=== PATIENT | female | born 1975 | race Caucasian/White ===

== ENCOUNTER 2016-04-26 23:57 | Emergency (ER) | payer BC ==
--- NOTE | 2016-04-27 00:06 | Emergency Department Record ---
History of Present Illness - General Chief Complaint: Chest Pain Stated Complaint: CHEST HURTS Time Seen by Provider: 04/27/16 00:05 Source: Patient Mode of Arrival: Ambulatory Limitations: No limitations - History of Present Illness Initial Comments: The patient is here due to not feeling well for the last hour and a half to 2 hours. She took 3 OTC sleeping medicines at 9:00 pm and then around 11:00 pm began to feel anxious, palpitations, fast heart beating, dry mouth and shakey. She states she has taken the OTC medicines in the past and never has had this type of reaction. She denies any CP but when her HR gets very fast she feels some discomfort. She has no hx of cardiac issues and her only cardiac risk factor is a 20 year hx of tobacco use which ended about 3 years ago. She has no hx of any recent travel, CP with exertion, ARANDA or leg swelling. MD Complaint: Other Onset/Timin -: Hour(s) - Related Data Home Medications Medication Instructions Recorded Confirmed Last Taken Methadone HCl 55 mg PO DAILY 12/14/13 04/27/16 04/26/16 Allergies Allergy/AdvReac Type Severity Reaction Status Date / Time No Known Drug Allergies Allergy Verified 09/12/15 12:28 Review of Systems Constitutional: Denies: Chills, Fever Eyes: Denies: Eye discharge ENT: Denies: Congestion Respiratory: Denies: Cough, Dyspnea Past Medical History - SOCIAL HISTORY Smoking Status: Former smoker - RESPIRATORY Hx Respiratory Disorders: No - CARDIOVASCULAR Hx Cardio Disorders: No - NEURO Hx Neuro Disorders: No - GI Hx GI Disorders: No - Hx Genitourinary Disorders: No - ENDOCRINE Hx Endocrine Disorders: No - MUSCULOSKELETAL Hx Musculoskeletal Disorders: No - PSYCH Hx Psych Problems: Yes Hx Anxiety: Yes - HEMATOLOGY/ONCOLOGY Hx Hematology/Oncology Disorders: No Family Medical History Family Hx Comment (NOT TO BE USED IN PLACE OF ITEMS BELOW): mom w/ MS Hx Cancer: Grandparents Hx Diabetes: Father Physical Exam - General General Appearance: Alert, Oriented x3, Cooperative, Mild distress (The patient appears very anxious.) - Head Head exam: Atraumatic, Normocephalic, Normal inspection - Eye Eye exam: Normal appearance, PERRL - ENT Throat exam: Normal inspection. negative: Tonsillar erythema, Tonsillar exudate - Neck Neck exam: Normal inspection, Full ROM. negative: Tenderness - Respiratory Respiratory exam: Normal lung sounds bilaterally. negative: Respiratory distress - Cardiovascular Cardiovascular Exam: Regular rate, Normal rhythm, Tachycardia - GI/Abdominal GI/Abdominal exam: Soft, Normal bowel sounds. negative: Tenderness - Extremities Extremities exam: Normal inspection, Full ROM, Normal capillary refill. negative: Tenderness - Neurological Neurological exam: Alert, Normal gait. negative: Abnormal gait, Motor sensory deficit - Psychiatric Psychiatric exam: Anxious Course Vital Signs 04/27/16 00:02 Temperature 98.4 F Pulse Rate [ 123 H Pulse Ox Probe] Respiratory 24 Rate Blood Pressure 160/92 [Left Arm] Pulse Ox 99 - Reevaluation(s) Reevaluation #1: The patient is doing much better at this time. Her HR has improved and is around 100 and her anxiety and jitteryness has improved. The patient did take 3 pills of Doxylamine prior to the onset of the palpitations which does have a moderate interaction with Methadone which can lead to dizziness, drowsiness and confusion. 04/27/16 00:56 04/27/16 02:32 Reevaluation #2: The patient is doing much better at this time and is very relaxed and no longer anxious. She denies any palpitations at this time and is resting comfortably. 04/27/16 01:29 Reevaluation #3: The patient is doing much better at this time. She is much less anxious and her HR is around 90. She still is feeling vague palpitations at times with vague chest "discomfort" but not pain. There is no sweating, nausea, MARISA or SOB. Due to the confusing nature of the patient's symptoms we will order a 2nd set of cardiac enzymes at 2:30am. 04/27/16 01:50 Reevaluation #4: The patient is doing a lot better at this time. She states she is feeling 150% better and denies any pain or discomfort. She is still having some intermittent palpitations and her repeat EKG does not have any acute changes. The QTc is borderline prolonged in the 2nd EKG most likely due to the combination of the Methadone and Doxyamine. I did discuss the options going forward with the patient and due to the patient still experiencing intermittent palpitations and intermittent discomfort I did recommend staying in the hospital overnight. The reasons I felt that was important is to further monitor her HR and to monitor her chest discomfort and to obtain a Cardiology consult during the day on Wednesday. The patient understands the reasons why I would like her to stay but she is refusing to stay in the hospital. She is presently awake and alert and ambulating normally. She has proper decision making capacity and will see her PCP this week for recheck. She also is intructed to return to the ER at any time for any recurrence of her symptoms. 04/27/16 03:03 Medical Decision Making - Data Complexity MDM Data: Labs Ordered and/or Reviewed, X-Ray Ordered and/or Reviewed, EKG Ordered and/or Reviewed - Lab Data Result diagrams: 04/27/16 00:18 04/27/16 00:18 - EKG Data -: EKG Interpreted by Me EKG: No Acute Changes, Unchanged From Previous - Radiology Data Radiology results: Image reviewed (CXR: Neg.) Disposition Disposition: Discharge Clinical Impression: Heart palpitations Disposition: Home, Self-Care Condition: (1) Good Instructions: Palpitations (ED) Additional Instructions: Please do not take your home Doxylamine any longer. Please see your PCP this week for recheck. Return to the ER for any chest pain, palpitations, or any trouble breathing. Forms: Patient Portal Access Time of Disposition: 03:09
[2016-04-27] MEDS ORDERED: LORAZEPAM 2 MG/ML VIAL IV ONE (00:19)
[2016-04-27] MEDS ORDERED: 0.9 % SODIUM CHLORIDE 1,000 ML BAG IV ONE (00:19)
[2016-04-27 00:27] LABS: BASO % 0.3 % (0-6); EOS % 1.6 % (0-6); GRAN % 41.1 % (47-80); HEMATOCRIT 35.9 % (35.0-47.0); HEMOGLOBIN 11.7 gm/dl (11.6-16.0); LYMPH % 45.3 % (16-45); MEAN CELL VOLUME 89.1 fl (81-97); MEAN CORPUSCULAR HGB CONC 32.6 g/dl (32-36); MEAN PLATELET VOLUME 12.4 fl (7.4-10.4); MONO % 11.7 % (0-9); PLATELET COUNT 250 K/uL (130-400); RED BLOOD COUNT 4.03 M/uL (3.80-5.40); RED CELL DISTRIBUTION WIDTH 12.6 % (11.5-14.5); WHITE BLOOD COUNT W/O DIFF 7.4 K/uL (4.2-12.2)
[2016-04-27 00:37] LABS: ALB/GLOB RATIO 1.3 (1.1-1.8); ALBUMIN 4.2 gm/dL (3.5-5.0); ALKALINE PHOSPHATASE 85 U/L (38-126); ALT/SGPT 33 U/L (9-52); ANION GAP 16.2 (7-16); AST/SGOT 24 U/L (14-36); BILIRUBIN,TOTAL 0.16 mg/dL (0.2-1.3); BLOOD UREA NITROGEN 10 mg/dL (7-17); CARBON DIOXIDE 25.8 mmol/L (22-30); CREATINE PHOSPHOKINASE 130 U/L (30-135); CREATININE 0.8 mg/dL (0.52-1.04); EST GLOMERULAR FILTRATION RATE > 60 ml/min; GLUCOSE,RANDOM 130 mg/dL (70-110); TOTAL PROTEIN 7.5 gm/dL (6.3-8.2)
[2016-04-27] MEDS ORDERED: POTASSIUM CHLORIDE 20 MEQ TABLET PO ONE (00:38)
[2016-04-27 00:41] LABS: D-DIMER 0.26 mg/L FEU (0-0.59); INR 0.92; PARTIAL THROMBOPLASTIN TIME 27.1 SECONDS (24.5-39.1); PROTHROMBIN TIME (PATIENT) 10.4 SECONDS (9.5-12.1)
[2016-04-27 00:49] LABS: CKMB 1.5 ug/L (0-6); TROPONIN I < 0.012 ng/mL (0.00-0.034)
[2016-04-27 02:59] LABS: CKMB 1.4 ug/L (0-6); TROPONIN I < 0.012 ng/mL (0.00-0.034)
--- NOTE | 2016-04-30 08:48 | RADIOLOGY REPORT ---
EXAM: CHEST, TWO VIEWS HISTORY: PALPITATIONS. TECHNIQUE: Upright PA and lateral views of the chest were obtained. Comparison: Two view chest radiographic examination dated 08/31/15. FINDINGS: The heart is not enlarged and the pulmonary vasculature is nondilated. The lungs and pleural spaces are clear. Mild degenerative end plate changes are scattered within the visualized spine. There is minimal levocurvature of the upper thoracic spine. IMPRESSION: NO RADIOGRAPHIC EVIDENCE OF ACUTE CARDIOPULMONARY DISEASE WITHOUT SIGNIFICANT CHANGE SINCE 08/31/15. JOB NUMBER: [id number] MTDD
== END 2016-04-27 03:20 | disposition home or self-care (01) ==
LOC: ER 23:57
DX: R00.2 Palpitations (principal); T45.0X5A Adverse effect of antiallergic and antiemetic drugs, initial encounter
CPT/HCPCS: 99284 ×2; 96374; 96361; 82550; 85025; 85730; 85610; 82553; 84484; 80053; 85379; 71020; 93005; 93010; J2060; J7030

== ENCOUNTER 2016-05-01 15:54 | Emergency (ER) | payer BC ==
--- NOTE | 2016-05-01 16:15 | Emergency Department Record ---
History of Present Illness - General Chief Complaint: Dizziness Stated Complaint: DIZZY,CHEST TIGHTNESS Time Seen by Provider: 05/01/16 16:07 Source: Patient Mode of Arrival: Wheelchair Limitations: No limitations - History of Present Illness Initial Comments: 41 yo female presents with palpitations, syncope, chest discomfort. This occurred last Wednesday as well. The onset is fairly abrupt. She denies injury. She does not have any history of CAD. She is on methadone that is being tapered but she has not missed any doses. She denies any drugs or alcohol. No PCP. Her methadone taper is slow and controlled by [facility]. The taper started about one year ago. She denies any recent missed doses. MD Complaint: Lightheadedness, Other (Palpitations, chest pain) Onset/Timin -: Minutes(s) Timing: Sudden onset Description: Lightheadedness, "Room spinning" History of Same: Yes History of Trauma: No Severity: Severe Improves With: Nothing Worsens With: Nothing Associated Symptoms: Chest pain, Syncope - Armando Coma Scale Eye Response: (4) Open spontaneously Motor Response: (6) Obeys commands Verbal Response: (5) Oriented Armando Total: 15 - Related Data Home Medications Medication Instructions Recorded Confirmed Last Taken Methadone HCl 55 mg PO DAILY 12/14/13 05/01/16 05/01/16 Allergies Allergy/AdvReac Type Severity Reaction Status Date / Time No Known Drug Allergies Allergy Verified 05/01/16 16:09 Travel Screening - Travel/Exposure Within Last 30 Days Have you traveled within the last 30 days?: No Review of Systems Constitutional: Reports: Malaise, Weakness. Denies: Chills, Fever Eyes: Denies: Eye discharge, Eye pain, Photophobia, Vision change ENT: Denies: Congestion, Throat pain Respiratory: Denies: Cough, Dyspnea, Hemoptysis, Stridor Cardiovascular: Reports: Chest pain, Dyspnea on exertion, Palpitations, Syncope Endocrine: Reports: Fatigue Gastrointestinal: Reports: Nausea. Denies: Abdominal pain, Diarrhea, Vomiting Genitourinary: Denies: Dysuria, Urgency Musculoskeletal: Denies: Arthralgia, Back pain, Myalgia, Neck pain Skin: Denies: Bruising, Change in color Neurological: Reports: Tingling, Weakness. Denies: Confusion, Headache Psychiatric: Reports: Anxiety Hematological/Lymphatic: Denies: Blood Clots, Easy bleeding, Easy bruising, Swollen glands Past Medical History - SOCIAL HISTORY Smoking Status: Former smoker Alcohol Use: None Drug Use: None - RESPIRATORY Hx Respiratory Disorders: No - CARDIOVASCULAR Hx Cardio Disorders: No - NEURO Hx Neuro Disorders: No - GI Hx GI Disorders: No - Hx Genitourinary Disorders: No - ENDOCRINE Hx Endocrine Disorders: No - MUSCULOSKELETAL Hx Musculoskeletal Disorders: No - PSYCH Hx Psych Problems: Yes Hx Anxiety: Yes - HEMATOLOGY/ONCOLOGY Hx Hematology/Oncology Disorders: No Family Medical History Any Significant Family History?: Yes Family Hx Comment (NOT TO BE USED IN PLACE OF ITEMS BELOW): mom w/ MS Hx Cancer: Grandparents Hx Diabetes: Father Physical Exam - General General Appearance: Alert, Oriented x3, Cooperative, No acute distress Limitations: No limitations - Head Head exam: Atraumatic, Normal inspection - Eye Eye exam: Normal appearance, PERRL. negative: Conjunctival injection, Periorbital swelling, Scleral icterus - ENT ENT exam: Normal exam, Mucous membranes moist, Normal external ear exam, Normal orophraynx, TM's normal bilaterally Ear exam: Normal external inspection. negative: External canal tenderness Nasal Exam: Normal inspection. negative: Discharge, Sinus tenderness Mouth exam: Normal external inspection, Tongue normal Teeth exam: Normal inspection. negative: Dental caries Throat exam: Normal inspection. negative: Tonsillar erythema, Tonsillar exudate - Neck Neck exam: Normal inspection, Full ROM. negative: Lymphadenopathy, Tenderness - Respiratory Respiratory exam: Normal lung sounds bilaterally. negative: Accessory muscle use, Decreased breath sounds, Respiratory distress - Cardiovascular Cardiovascular Exam: Normal rhythm, Normal heart sounds, Tachycardia Peripheral Pulses: 2+: Radial (R), Radial (L) - GI/Abdominal GI/Abdominal exam: Soft - Rectal Rectal exam: Deferred - exam: Deferred - Extremities Extremities exam: Normal inspection, Full ROM, Normal capillary refill. negative: Tenderness - Back Back exam: Reports: Normal inspection, Full ROM. Denies: Muscle spasm, Rash noted, Tenderness - Neurological Neurological exam: Alert, Normal gait, Oriented X3 - Psychiatric Psychiatric exam: Anxious - Skin Skin exam: Dry, Intact, Normal color, Warm Course Vital Signs 05/01/16 16:00 Temperature 98.8 F Pulse Rate 123 H Respiratory 22 Rate Blood Pressure 168/82 Pulse Ox 96 - Reevaluation(s) Reevaluation #1: EKG#1 1601 sinus tachycardia at 125, intervals QTC 456, [place] normal, ST inverted T waves V1-V4 EKG #2 15:57 sinus tachycardia at 113, intervals normal, axis normal, St inverted T waves anterior leads comparison 04/27 increased T wave changes EMR reviewed from the prior visit 05/01/16 16:16 Reevaluation #2: On my recheck her HR had been down to 98 then increased to 148 SHe feels anxious and feels the palpitations. She denies chest pain The CBC, CMP, Troponin were in the normal range The CXR from the recent visit was normal UDS was negative except for Methadone 05/01/16 17:28 Reevaluation #3: HCT is normal given her symptoms of CP and palpitations aspirin will be given EKG#3 Sinus tach rate 100, intervals [id number], axis normal, ST inverted precordial T waves. 05/01/16 17:51 Reevaluation #4: D-dimer is negative The patient was informed of the recommendation for transfer HR now is 85 she prefers [facility] for transfer if that is needed. 05/01/16 18:17 The oncall physician at [facility] was paged. Awaiting call back. 05/01/16 18:28 - Consultations Consultation #1: I JAMAL Sung of [facility] at [facility]. We discussed the symptoms and EKG He accepts the transfer for further work up and cardiology consultation. Medical Decision Making - Lab Data Result diagrams: 05/01/16 16:25 05/01/16 16:25 Disposition Disposition: Transfer Clinical Impression: Heart palpitations Chest pain Qualifiers: Chest pain type: unspecified Qualified Code(s): R07.9 - Chest pain, unspecified Syncope Qualifiers: Syncope type: unspecified Qualified Code(s): R55 - Syncope and collapse Disposition: Acute Care Hospital Transfer Transfer To: [facility] Reason For Transfer: chest pain, abnormal EKG, Accepting Physician: Dr Sung Time Discussed w/Accepting Physician: 18:40 Condition: (2) Stable Forms: Patient Portal Access Time of Disposition: 18:18
[2016-05-01] MEDS ORDERED: LORAZEPAM 2 MG/ML VIAL IV ONE ×2 (16:20→17:27)
[2016-05-01 16:43] LABS: HEMATOCRIT 37.7 % (35.0-47.0); HEMOGLOBIN 12.5 gm/dl (11.6-16.0); MEAN CELL VOLUME 88.1 fl (81-97); MEAN CORPUSCULAR HEMOGLOBIN 29.2 pg (27-33); MEAN CORPUSCULAR HGB CONC 33.2 g/dl (32-36); PLATELET COUNT 241 K/uL (130-400); RED BLOOD COUNT 4.28 M/uL (3.80-5.40); RED CELL DISTRIBUTION WIDTH 13.1 % (11.5-14.5); WHITE BLOOD COUNT W/O DIFF 5.4 K/uL (4.2-12.2)
[2016-05-01 16:49] LABS: AMPHETAMINE SCREEN URINE NOT DETECTED; BARBITURATE SCREEN URINE NOT DETECTED; BENZODIAZEPINE SCREEN URINE NOT DETECTED; COCAINE SCREEN URINE NOT DETECTED; METHADONE SCREEN URINE DETECTED; METHAMPHETAMINE SCREEN NOT DETECTED; OPIATE SCREEN URINE NOT DETECTED; OXYCODONE SCREEN URINE NOT DETECTED; PHENCYCLIDINE SCREEN URINE NOT DETECTED; PROPOXYPHENE SCREEN URINE NOT DETECTED; THC SCREEN URINE NOT DETECTED; TRICYCLIC ANTIDEPRESSANT SCRN NOT DETECTED
[2016-05-01 16:52] LABS: PLATELET ESTIMATE NORMAL (NORMAL)
[2016-05-01 16:59] LABS: ALB/GLOB RATIO 1.3 (1.1-1.8); ALBUMIN 4.4 gm/dL (3.5-5.0); ALKALINE PHOSPHATASE 83 U/L (38-126); ALT/SGPT 34 U/L (9-52); ANION GAP 15.8 (7-16); AST/SGOT 31 U/L (14-36); BILIRUBIN,TOTAL 0.35 mg/dL (0.2-1.3); BLOOD UREA NITROGEN 10 mg/dL (7-17); CARBON DIOXIDE 25.2 mmol/L (22-30); CREATINE PHOSPHOKINASE 111 U/L (30-135); CREATININE 0.8 mg/dL (0.52-1.04); EST GLOMERULAR FILTRATION RATE > 60 ml/min; GLUCOSE,RANDOM 131 mg/dL (70-110); TOTAL PROTEIN 7.7 gm/dL (6.3-8.2)
[2016-05-01 17:00] LABS: INR 0.96; PARTIAL THROMBOPLASTIN TIME 25.8 SECONDS (24.5-39.1); PROTHROMBIN TIME (PATIENT) 10.9 SECONDS (9.5-12.1)
[2016-05-01 17:10] LABS: CKMB 1.6 ug/L (0-6); TROPONIN I < 0.012 ng/mL (0.00-0.034)
--- NOTE | 2016-05-06 13:51 | CT SCAN REPORT ---
EXAM: HEAD CT WITHOUT CONTRAST HISTORY: SYNCOPE. TECHNIQUE: Contiguous axial images from the cerebral convexities to the foramen magnum were obtained without contrast. Comparison: None. Hand dominance: Right. FINDINGS: The brain volume is normal. No acute intracranial hemorrhage, mass effect, or midline shift. No CT evidence of acute infarct. The ventricles, basal cisterns, and sulci are within normal limits. The osseous structures, soft tissues and paranasal sinuses are unremarkable. IMPRESSION: NORMAL HEAD CT. JOB NUMBER: [id number] [facility]
== END 2016-05-01 19:43 | disposition short-term general hospital (02) ==
LOC: ER 15:54
DX: R00.2 Palpitations (principal); R55 Syncope and collapse; R07.9 Chest pain, unspecified; Z87.891 Personal history of nicotine dependence
CPT/HCPCS: 99285 ×2; 96376; 96374; 82550; 85730; 85610; 82553; 84484; 80053; 84443; 85379; 85027; 70450; 93005; 93010; G0480; G0477; J2060; 80320

== ENCOUNTER 2016-06-05 18:46 | Emergency (ER) | payer BC ==
[2016-06-05] MEDS ORDERED: KETOROLAC 30 MG/ML VIAL IVP ONE (19:16)
[2016-06-05] MEDS ORDERED: ASPIRIN 81 MG CHEWABLE TABLET PO ONE (19:16)
--- NOTE | 2016-06-05 19:21 | Emergency Department Record ---
History of Present Illness - General Chief Complaint: Chest Pain Stated Complaint: CHEST PAIN/BACK Time Seen by Provider: 06/05/16 19:15 Source: Patient Mode of Arrival: Ambulatory Limitations: No limitations - History of Present Illness Initial Comments: 41 yo female presents to ED with a CC of chest pain radiating to the right side of her neck and into her back, reports is worsens with deep inspiration, and feels similar to previous episode of pneumonia. Patient denies fevers, chills, or cough symptoms, denies previous DVT, calf pain, or swelling. Patient does however report recent hospitalization for "tachycardia", was admitted for 6 days and treated by Dr. Fuentes. Complaint: Chest pain Onset/Timin -: Hour(s) Onset: Awoke with symptoms, During rest Pain Location: Substernal, Left chest, Right chest Severity: Moderate Severity scale (1-10): 5 Quality: Aching, Dull, Heaviness Consistency: Constant Improves With: Nothing Worsens With: Inspiration Context: Recent illness Anginal Symptoms: Dyspnea Treatment Prior to Arrival Comment:: 2 motrin - Related Data Home Medications Medication Instructions Recorded Confirmed Last Taken Methadone HCl 55 mg PO DAILY 12/14/13 06/05/16 1 Day Ago Nicardipine HCl 20 mg PO DAILY 06/05/16 06/05/16 1 Day Ago Allergies Allergy/AdvReac Type Severity Reaction Status Date / Time No Known Drug Allergies Allergy Verified 06/05/16 18:57 Travel Screening - Travel/Exposure Within Last 30 Days Have you traveled within the last 30 days?: No - Travel/Exposure Within Last Year Have you traveled outside the [place] in the last year?: No - Additonal Travel Details Have you been exposed to anyone with a communicable illness?: No - Travel Symptoms Symptom Screening: None Review of Systems Constitutional: Denies: Chills, Fever, Malaise, Night sweats Eyes: Denies: Eye discharge, Eye pain ENT: Denies: Congestion, Ear pain, Epistaxis Respiratory: Denies: Cough, Dyspnea Cardiovascular: Reports: Chest pain. Denies: Dyspnea on exertion, Palpitations Endocrine: Denies: Fatigue, Heat or cold intolerance Gastrointestinal: Denies: Abdominal pain, Nausea, Vomiting Genitourinary: Denies: Incontinence, Retention Musculoskeletal: Denies: Arthralgia, Back pain, Gout, Joint swelling Skin: Denies: Bruising, Change in color Neurological: Denies: Abnormal gait, Confusion, Headache, Tingling Psychiatric: Denies: Anxiety Hematological/Lymphatic: Denies: Anemia, Blood Clots Past Medical History - SOCIAL HISTORY Smoking Status: Former smoker Alcohol Use: None Drug Use: None - RESPIRATORY Hx Respiratory Disorders: Yes Hx Pneumonia: Yes - CARDIOVASCULAR Hx Irregular Heartbeat: Yes (currently being evaluated) - NEURO Hx Neuro Disorders: No - GI Hx GI Disorders: No - Hx Genitourinary Disorders: No - ENDOCRINE Hx Endocrine Disorders: No - MUSCULOSKELETAL Hx Musculoskeletal Disorders: No - PSYCH Hx Psych Problems: Yes Hx Anxiety: Yes - HEMATOLOGY/ONCOLOGY Hx Hematology/Oncology Disorders: No Family Medical History Any Significant Family History?: Yes Family Hx Comment (NOT TO BE USED IN PLACE OF ITEMS BELOW): mom w/ MS Hx Cancer: Grandparents Hx Diabetes: Father Physical Exam - General General Appearance: Alert, Oriented x3, Cooperative, Moderate distress Limitations: No limitations - Head Head exam: Atraumatic, Normocephalic, Normal inspection Head exam detail: negative: Abrasion, Contusion, Tristan's sign, General tenderness, Hematoma, Laceration - Eye Eye exam: Normal appearance. negative: Conjunctival injection, Periorbital swelling, Periorbital tenderness, Scleral icterus - ENT Ear exam: negative: Auricular hematoma, Auricular trauma Nasal Exam: negative: Active bleeding, Discharge, Dried blood, Foreign body, Sinus tenderness Mouth exam: negative: Drooling, Laceration, Muffled voice, Tongue elevation - Neck Neck exam: Normal inspection. negative: Meningismus, Tenderness - Respiratory Respiratory exam: Normal lung sounds bilaterally. negative: Respiratory distress, Rhonchi, Stridor, Wheezes - Cardiovascular Cardiovascular Exam: Regular rate, Normal rhythm, Normal heart sounds - GI/Abdominal GI/Abdominal exam: Soft. negative: Organomegaly, Rebound, Rigid - Rectal Rectal exam: Deferred - exam: Deferred - Extremities Extremities exam: Normal inspection. negative: Calf tenderness, Pedal edema, Tenderness - Back Back exam: Denies: CVA tenderness (R), CVA tenderness (L) - Neurological Neurological exam: Alert, Normal gait, Oriented X3 - Psychiatric Psychiatric exam: Normal affect, Normal mood - Skin Skin exam: Normal color. negative: Abrasion Type of lesion: negative: abrasion Course Vital Signs 06/05/16 18:47 Temperature 98.5 F Pulse Rate 104 H Respiratory 20 Rate Blood Pressure 158/90 Pulse Ox 97 - Reevaluation(s) Reevaluation #1: 06/05/16 19:15 EKG: NSR 94 Normal axis Normal intervals T wave inversions V1-V3 Reevaluation #2: 06/05/16 19:20 Patient seen and examined, previous EKG and records from [facility] ordered to review. Offered the patient analgesia, declined opiates as she is on methadone. Aspirin and Toradol ordered for now. Reevaluation #3: 06/05/16 20:37 Labs reviewed and are grossly unremarkable for an acute process. CXR pending. Reevaluation #4: 06/05/16 21:11 Previous EKG reviewed 05/01/16 NSR 100 Normal axis, normal intervals T wave inversions V1-V3 unchanged from today's EKG. [facility] contacted again for previous records (3rd time), no reports received. Reevaluation #5: 06/05/16 22:34 Discharge summary reviewed 05/06/16: Echo 55-60% with normal LV function Previous EKG 06/04/[address] [facility] NSR 77 Normal axis, normal intervals T wave inversions V1-V3 unchanged from today's EKG. 00:06 repeat Troponin 0.044. Patient received Aspirin on arrival, hold heparin until patient is evaluated upon arrival to [facility] as Troponin is indeterminate. Case was discussed with Dr. Jordan, will accept transfer. 06/06/16 00:06 06/06/16 00:09 Medical Decision Making - Lab Data Result diagrams: 06/05/16 19:08 06/05/16 19:08 Disposition Disposition: Transfer Clinical Impression: Elevated troponin I level Chest pain Qualifiers: Chest pain type: unspecified Qualified Code(s): R07.9 - Chest pain, unspecified Disposition: Acute Care Hospital Transfer Transfer To: [facility] Reason For Transfer: Elevated repeat troponin Accepting Physician: Nikki Time Discussed w/Accepting Physician: 00:09 Condition: (2) Stable Instructions: Chest Pain (ED) Forms: Patient Portal Access Time of Disposition: 00:09
[2016-06-05 19:35] LABS: BASO % 0.2 % (0-6); EOS % 1.2 % (0-6); GRAN % 46.4 % (47-80); HEMATOCRIT 35.6 % (35.0-47.0); HEMOGLOBIN 11.8 gm/dl (11.6-16.0); LYMPH % 38.9 % (16-45); MEAN CELL VOLUME 88.3 fl (81-97); MEAN CORPUSCULAR HEMOGLOBIN 29.3 pg (27-33); MEAN CORPUSCULAR HGB CONC 33.1 g/dl (32-36); MEAN PLATELET VOLUME 12.1 fl (7.4-10.4); MONO % 13.3 % (0-9); PLATELET COUNT 254 K/uL (130-400); RED BLOOD COUNT 4.03 M/uL (3.80-5.40); RED CELL DISTRIBUTION WIDTH 13.1 % (11.5-14.5); WHITE BLOOD COUNT W/O DIFF 5.8 K/uL (4.2-12.2)
[2016-06-05 19:50] LABS: ALB/GLOB RATIO 1.3 (1.1-1.8); ALBUMIN 4.1 gm/dL (3.5-5.0); ALKALINE PHOSPHATASE 87 U/L (38-126); ALT/SGPT 34 U/L (9-52); ANION GAP 5.8 (7-16); AST/SGOT 31 U/L (14-36); BLOOD UREA NITROGEN 11 mg/dL (7-17); CARBON DIOXIDE 28.2 mmol/L (22-30); CREATINE PHOSPHOKINASE 63 U/L (30-135); CREATININE 0.7 mg/dL (0.52-1.04); EST GLOMERULAR FILTRATION RATE > 60 ml/min; GLUCOSE,RANDOM 119 mg/dL (70-110); TOTAL PROTEIN 7.3 gm/dL (6.3-8.2)
[2016-06-05 19:52] LABS: BILIRUBIN,TOTAL < 0.10 mg/dL (0.2-1.3); C-REACTIVE PROTEIN < 0.5 mg/dL (0.0-0.9)
[2016-06-05 19:59] LABS: CKMB 0.9 ug/L (0-6)
[2016-06-05 20:00] LABS: TROPONIN I < 0.012 ng/mL (0.00-0.034)
[2016-06-05 20:12] LABS: ERYTHROCYTE SEDIMENTATION RATE 11 mm/hr (0-20)
[2016-06-06] MEDS ORDERED: LORAZEPAM 2 MG/ML VIAL IV ONE (00:27)
--- NOTE | 2016-06-09 15:09 | RADIOLOGY REPORT ---
EXAM: CHEST, TWO VIEWS HISTORY: PATIENT HAS CHEST PAIN WHICH RADIATES TO THE RIGHT UPPER BACK. TECHNIQUE: Two views of the chest are provided along with the comparison study dated 04/27/16. FINDINGS: The cardiomediastinal silhouette is within normal limits for size and contour. The demarcus appear unremarkable. There is no radiographic evidence of a focal infiltrate, pleural effusion, or pneumothorax. IMPRESSION: NO RADIOGRAPHIC EVIDENCE OF AN ACUTE INTRATHORACIC PROCESS. [facility]BER: [id number] [facility]
== END 2016-06-06 02:41 | disposition short-term general hospital (02) ==
LOC: ER 18:46
DX: R07.2 Precordial pain (principal); R79.89 Other specified abnormal findings of blood chemistry; R06.00 Dyspnea, unspecified; M54.2 Cervicalgia; R00.0 Tachycardia, unspecified; Z87.891 Personal history of nicotine dependence
CPT/HCPCS: 99285 ×2; 96374; 96375; 82550; 85025; 85651; 86140; 82553; 84484; 80053; 85379; 71020; 93005; 93010; J1885; J2060

== ENCOUNTER 2017-03-01 17:20 | Emergency (ER) | payer BC ==
--- NOTE | 2017-03-01 17:34 | Emergency Department Record ---
History of Present Illness - General Chief complaint: Pain Stated complaint: T SIDE NECK/SHOULDER/ARM PAIN Time Seen by Provider: 03/01/17 17:29 Source: Patient Mode of Arrival: Ambulatory Limitations: No limitations - History of Present Illness Initial comments: The patient is here due to R sided neck pain for 2 days. The pain is sharp and stabbing and intermittently radiates to her R shoulder and arm. Turning the head to the L and bending the neck in extension reproduces the pain. There is no arm weakness, numbness, or tingling and she denies any trauma or injury. She also denies any MARK, CP, SOB, or MARISA. The patient states she has no hx of similar issues or problems. MD Complaint: Neck Pain Onset/Timin -: Days(s) Location: Right, Arm, Shoulder, Other History of Same: Yes Radiation: None Severity scale (1-10): 5 Quality: Aching, Sharp Consistency: Constant Improves with: Nothing Worsens with: Nothing Associated Symptoms: Denies other symptoms - Related Data Home Medications Medication Instructions Recorded Confirmed Last Taken Buspirone HCl [Buspar] 10 mg PO BID 03/01/17 03/01/17 Unknown Diltiazem HCl [Cardizem] 120 mg PO DAILY 03/01/17 03/01/17 Unknown Previous Rx's Medication Instructions Recorded Methylprednisolone [Medrol Dose 4 mg PO DAILY #1 tab.ds.pk 03/01/17 Pack] Naproxen [Naprosyn] 500 mg PO BID #14 tablet. 03/01/17 Allergies Allergy/AdvReac Type Severity Reaction Status Date / Time No Known Drug Allergies Allergy Verified 06/05/16 18:57 Travel Screening - Travel/Exposure Within Last 30 Days Have you traveled within the last 30 days?: No Review of Systems Constitutional: Denies: Chills, Fever Eyes: Denies: Eye discharge ENT: Denies: Congestion Respiratory: Denies: Cough, Dyspnea Past Medical History - SOCIAL HISTORY Smoking Status: Former smoker - RESPIRATORY Hx Respiratory Disorders: Yes Hx Pneumonia: Yes - CARDIOVASCULAR Hx Cardio Disorders: No Hx Irregular Heartbeat: Yes (currently being evaluated) - NEURO Hx Neuro Disorders: No - GI Hx GI Disorders: No - Hx Genitourinary Disorders: No - ENDOCRINE Hx Endocrine Disorders: No - MUSCULOSKELETAL Hx Musculoskeletal Disorders: No - PSYCH Hx Psych Problems: Yes Hx Anxiety: Yes - HEMATOLOGY/ONCOLOGY Hx Hematology/Oncology Disorders: No Family Medical History Any Significant Family History?: Yes Family Hx Comment (NOT TO BE USED IN PLACE OF ITEMS BELOW): mom w/ MS Hx Cancer: Grandparents Hx Diabetes: Father Physical Exam - General General Appearance: Alert, Oriented x3, Cooperative, No acute distress - Head Head exam: Atraumatic, Normocephalic, Normal inspection - Eye Eye exam: Normal appearance, PERRL - ENT Throat exam: Normal inspection. negative: Tonsillar erythema, Tonsillar exudate - Neck Neck exam: Normal inspection, Full ROM. negative: Tenderness - Respiratory Respiratory exam: Normal lung sounds bilaterally. negative: Respiratory distress - Cardiovascular Cardiovascular Exam: Regular rate, Normal rhythm, Normal heart sounds - GI/Abdominal GI/Abdominal exam: Soft, Normal bowel sounds. negative: Tenderness - Extremities Extremities exam: Normal inspection, Full ROM, Normal capillary refill, Tenderness (There is reproducible tenderness to palpation over the R posterior neck area.) Image of Full Body: 1 - Area of pain and tenderness. - Back Back exam: Reports: Normal inspection, Full ROM. Denies: Muscle spasm, Rash noted, Tenderness - Neurological Neurological exam: Alert, Normal gait, Oriented X3, Reflexes normal. negative: Abnormal gait, Altered, Motor sensory deficit (The motor and sensory exams are 5 /5 in all muscle groups to the bilateral arms. The radial pulses are normal bilaterally and equal.) Course Vital Signs 03/01/17 17:26 Temperature 98.8 F Pulse Rate 98 H Respiratory 20 Rate Blood Pressure 146/85 Pulse Ox 99 - Reevaluation(s) Reevaluation #1: I did discuss the labs and xrays with the patient. We will treat her with an NSAID and a Medrol dose pack. She is to see her PCP later this week for recheck and may need to be referred to PT at that time. If not better she may also need an MRI. 03/01/17 18:24 Medical Decision Making - Data Complexity MDM Data: Labs Ordered and/or Reviewed, X-Ray Ordered and/or Reviewed - Lab Data Result diagrams: 03/01/17 17:50 03/01/17 17:50 - Radiology Data Radiology results: Report reviewed (Cervical Spine: Minor DJD, O/W neg.) Disposition Disposition: Discharge Clinical Impression: Cervical strain, acute Qualifiers: Encounter type: initial encounter Qualified Code(s): S16.1XXA - Strain of muscle, fascia and tendon at neck level, initial encounter Disposition: Home, Self-Care Condition: (2) Stable Instructions: Cervical Strain (ED) Additional Instructions: Please rest the arm and use moist heat to the R posterior neck when possible. Please take the Naprosyn and Medrol dose pack as directed. Please see your PCP for recheck later this week. Return to the ER for any increased pain, weakness, numbness, or visual changes. Prescriptions: Methylprednisolone [Medrol Dose Pack] 4 mg PO DAILY #1 tab.ds.pk Naproxen [Naprosyn] 500 mg PO BID #14 tablet.dr Forms: Patient Portal Access Time of Disposition: 18:30 Quality - Quality Measures Quality Measures: N/A - Blood Pressure Screening View Details: Yes Does Patient Have Any of the Following: No Blood Pressure Classification: Pre-Hypertensive BP Reading Systolic Measurement: 146 Diastolic Measurement: 85 Screening for High Blood Pressure: < Pre-Hypertensive BP, F/U Documented > [ G8950] Pre-Hypertensive Follow-up Interventions: Referral to alternative/primary care provider.
[2017-03-01] MEDS ORDERED: KETOROLAC 30 MG/ML VIAL IM ONE (17:37)
[2017-03-01 18:04] LABS: BASO % 0.3 % (0-6); EOS % 1.4 % (0-6); GRAN % 40.2 % (47-80); HEMATOCRIT 39.5 % (35.0-47.0); HEMOGLOBIN 12.9 gm/dl (11.6-16.0); LYMPH % 46.3 % (16-45); MEAN CORPUSCULAR HEMOGLOBIN 28.4 pg (27-33); MEAN CORPUSCULAR HGB CONC 32.7 g/dl (32-36); MEAN PLATELET VOLUME 12.7 fl (7.4-10.4); MONO % 11.8 % (0-9); PLATELET COUNT 201 K/uL (130-400); RED BLOOD COUNT 4.54 M/uL (3.80-5.40); RED CELL DISTRIBUTION WIDTH 12.2 % (11.5-14.5); WHITE BLOOD COUNT W/O DIFF 6.4 K/uL (4.2-12.2)
[2017-03-01 18:15] LABS: BLOOD UREA NITROGEN 15 mg/dL (6-20); CREATININE 0.7 mg/dL (0.5-0.9); EST GLOMERULAR FILTRATION RATE > 60 mL/min
[2017-03-01 18:18] LABS: GLUCOSE,RANDOM 112 mg/dL (74-109)
--- NOTE | 2017-03-02 08:09 | RADIOLOGY REPORT ---
EXAM: CERVICAL SPINE HISTORY: NECK PAIN. TECHNIQUE: Five views of the cervical spine were obtained. Comparison: None. FINDINGS: The vertebral body height and alignment is preserved. Minor end plate degenerative changes with osteophytic spurring and facet arthropathy at the C4-C5 and C5-C6 levels. The remaining disk spaces are preserved. The prevertebral soft tissues are normal. IMPRESSION: MINOR DEGENERATIVE CHANGE, ABOVE. JOB NUMBER: [id number] MTDD
== END 2017-03-01 18:51 | disposition home or self-care (01) ==
LOC: ER 17:20
DX: S16.1XXA Strain of muscle, fascia and tendon at neck level, initial encounter (principal); M25.511 Pain in right shoulder; X58.XXXA Exposure to other specified factors, initial encounter
CPT/HCPCS: 99283; 96372; 99284; 85025; 80048; 72050; J1885

== ENCOUNTER 2017-05-13 14:50 | Emergency (ER) | payer BC ==
--- NOTE | 2017-05-13 15:07 | Emergency Department Record ---
History of Present Illness - General Chief Complaint: Palpitations Stated Complaint: HEART PALPATIONS Time Seen by Provider: 05/13/17 15:04 Source: Patient Mode of Arrival: Ambulatory Limitations: No limitations - History of Present Illness Initial Comments: The patient is here due to feeling the acute onset of palpitations and a fast HR just over an hour ago while watching TV at home. She denied any pain, SOB, or MARISA but did have mild tightness and feel very anxious after the palpitations started. The symptoms are much better at this time and have basically resolved since she has relaxed in the ER. She has a long hx of similar issues and does see a Insole Beveler at [facility] for this. She was admitted multiple times for it last year and did have a neg Echo and Nuclear Stress test. MD Complaint: Palpitations, Rapid heart beat Onset/Timin -: Hour(s) Context: Occurred during rest Arrythmia History: Other Associated Symptoms: Denies other symptoms - Related Data Previous Rx's Medication Instructions Recorded Methylprednisolone [Medrol Dose 4 mg PO DAILY #1 tab.ds.pk 03/01/17 Pack] Allergies Allergy/AdvReac Type Severity Reaction Status Date / Time No Known Drug Allergies Allergy Verified 05/13/17 14:56 Travel Screening - Travel/Exposure Within Last 30 Days Have you traveled within the last 30 days?: No Review of Systems Constitutional: Denies: Chills, Fever Eyes: Denies: Eye discharge ENT: Denies: Congestion Respiratory: Denies: Cough, Dyspnea Past Medical History - SOCIAL HISTORY Smoking Status: Former smoker Alcohol Use: None Drug Use: None - RESPIRATORY Hx Respiratory Disorders: Yes Hx Pneumonia: Yes - CARDIOVASCULAR Hx Cardio Disorders: Yes Hx Hypertension: Yes Hx Irregular Heartbeat: Yes (currently being evaluated) - NEURO Hx Neuro Disorders: No - GI Hx GI Disorders: No - Hx Genitourinary Disorders: No - ENDOCRINE Hx Endocrine Disorders: No - MUSCULOSKELETAL Hx Musculoskeletal Disorders: No - PSYCH Hx Psych Problems: Yes Hx Anxiety: Yes Hx Depression: Yes - HEMATOLOGY/ONCOLOGY Hx Hematology/Oncology Disorders: No Family Medical History Any Significant Family History?: Yes Family Hx Comment (NOT TO BE USED IN PLACE OF ITEMS BELOW): mom w/ MS Hx Cancer: Grandparents Hx Diabetes: Father Physical Exam - General General Appearance: Alert, Oriented x3, Cooperative, No acute distress - Head Head exam: Atraumatic, Normocephalic, Normal inspection - Eye Eye exam: Normal appearance, PERRL - Neck Neck exam: Normal inspection, Full ROM. negative: Tenderness - Respiratory Respiratory exam: Normal lung sounds bilaterally. negative: Respiratory distress - Cardiovascular Cardiovascular Exam: Regular rate, Normal rhythm, Normal heart sounds - GI/Abdominal GI/Abdominal exam: Soft, Normal bowel sounds. negative: Tenderness - Extremities Extremities exam: Normal inspection, Full ROM, Normal capillary refill. negative: Tenderness - Neurological Neurological exam: Alert. negative: Motor sensory deficit Course Vital Signs 05/13/17 14:52 Temperature 98.7 F Pulse Rate 111 H Respiratory 22 Rate Blood Pressure 149/77 Pulse Ox 98 - Reevaluation(s) Reevaluation #1: 2nd EKG: NSR at 82, neg acute changes. 05/13/17 15:37 Reevaluation #2: The patient is doing much better at this time. She denies any pain, discomfort, or palpitations. She is very relaxed and is resting comfortably. 05/13/17 16:08 Reevaluation #3: The patient is doing much better at this time. She feels 100% back to normal and her HR is now in the 60's. She states this is exactly like her previous episodes of sinus tachycardia for which her Insole Beveler is trying to find the cause. I did explain to her that I would like to do a 4 hour TROP and CK-MB and she does agree to the plan. 05/13/17 16:48 Reevaluation #4: The patient is doing well. She denies any problems and still feels back to normal. 05/13/17 17:43 Medical Decision Making - Data Complexity MDM Data: Labs Ordered and/or Reviewed, EKG Ordered and/or Reviewed, Review and Summary of Old Record Discussed (I have attempted to examine the [facility] records but have not been successful due to the [facility] medical records people unwilling or unable to provide the information to me. ) - Lab Data Result diagrams: 05/13/17 15:36 05/13/17 15:36 - EKG Data -: EKG Interpreted by Me EKG: No Acute Changes (Sinus tach at 135. Flipped T's V1-3, (old)) Disposition Disposition: Discharge Clinical Impression: Heart palpitations Disposition: Home, Self-Care Condition: (2) Stable Instructions: Heart Palpitations (ED) Additional Instructions: Please continue your regular medicines. Please see your Insole Beveler next week for recheck. Return to the ER for any problems or issues. Forms: Patient Portal Access Time of Disposition: 17:58 Quality - Quality Measures Quality Measures: N/A - Blood Pressure Screening View Details: Yes Does Patient Have Any of the Following: No Blood Pressure Classification: Hypertensive Reading Systolic Measurement: 149 Diastolic Measurement: 77 Screening for High Blood Pressure: < Pre-Hypertensive BP, F/U Documented > [ G8950] Pre-Hypertensive Follow-up Interventions: Referral to alternative/primary care provider.
[2017-05-13] MEDS ORDERED: LORAZEPAM 2 MG/ML VIAL IV ONE (15:30)
[2017-05-13 15:47] LABS: BASO % 0.2 % (0-6); GRAN % 60.8 % (47-80); HEMATOCRIT 40.5 % (35.0-47.0); HEMOGLOBIN 13.2 gm/dl (11.6-16.0); LYMPH % 32.7 % (16-45); MEAN CELL VOLUME 85.6 fl (81-97); MEAN CORPUSCULAR HEMOGLOBIN 27.9 pg (27-33); MEAN CORPUSCULAR HGB CONC 32.6 g/dl (32-36); MEAN PLATELET VOLUME 12.5 fl (7.4-10.4); MONO % 6.3 % (0-9); PLATELET COUNT 231 K/uL (130-400); RED BLOOD COUNT 4.73 M/uL (3.80-5.40); RED CELL DISTRIBUTION WIDTH 12.8 % (11.5-14.5)
[2017-05-13 15:57] LABS: BLOOD UREA NITROGEN 24 mg/dL (6-20); CREATININE 0.6 mg/dL (0.5-0.9); EST GLOMERULAR FILTRATION RATE > 60 mL/min
[2017-05-13 15:58] LABS: TOTAL PROTEIN 7.9 g/dL (6.6-8.7)
[2017-05-13 16:00] LABS: GLUCOSE,RANDOM 185 mg/dL (74-109)
[2017-05-13 16:02] LABS: ALT/SGPT 9 U/L (<33); AST/SGOT 17 U/L (10.0-35.0)
[2017-05-13 16:03] LABS: ALB/GLOB RATIO 1.5 (1.1-1.8); ALBUMIN 4.7 g/dL (4.0-5.0); ALKALINE PHOSPHATASE 90 U/L (35-104); CREATINE PHOSPHOKINASE 87 U/L (26-192)
[2017-05-13 16:40] LABS: CKMB 3.1 ng/mL (<3.77)
--- NOTE | 2017-05-13 20:25 | Emergency Department Record ---
History of Present Illness - General Chief Complaint: Palpitations Stated Complaint: HEART PALPATIONS Time Seen by Provider: 05/13/17 15:04 Source: Patient Mode of Arrival: Ambulatory Limitations: No limitations - History of Present Illness MD Complaint: Palpitations, Rapid heart beat Onset/Timin -: Hour(s) Context: Occurred during rest Arrythmia History: Other Associated Symptoms: Denies other symptoms - Related Data Previous Rx's Medication Instructions Recorded Methylprednisolone [Medrol Dose 4 mg PO DAILY #1 tab.ds.pk 03/01/17 Pack] Allergies Allergy/AdvReac Type Severity Reaction Status Date / Time No Known Drug Allergies Allergy Verified 05/13/17 14:56 Travel Screening - Travel/Exposure Within Last 30 Days Have you traveled within the last 30 days?: No Review of Systems Constitutional: Denies: Chills, Fever Eyes: Denies: Eye discharge ENT: Denies: Congestion Respiratory: Denies: Cough, Dyspnea Past Medical History - SOCIAL HISTORY Smoking Status: Former smoker Alcohol Use: None Drug Use: None - RESPIRATORY Hx Respiratory Disorders: Yes Hx Pneumonia: Yes - CARDIOVASCULAR Hx Cardio Disorders: Yes Hx Hypertension: Yes Hx Irregular Heartbeat: Yes (currently being evaluated) - NEURO Hx Neuro Disorders: No - GI Hx GI Disorders: No - Hx Genitourinary Disorders: No - ENDOCRINE Hx Endocrine Disorders: No - MUSCULOSKELETAL Hx Musculoskeletal Disorders: No - PSYCH Hx Psych Problems: Yes Hx Anxiety: Yes Hx Depression: Yes - HEMATOLOGY/ONCOLOGY Hx Hematology/Oncology Disorders: No Family Medical History Any Significant Family History?: Yes Family Hx Comment (NOT TO BE USED IN PLACE OF ITEMS BELOW): mom w/ MS Hx Cancer: Grandparents Hx Diabetes: Father Physical Exam - General Limitations: No limitations Course Vital Signs 05/13/17 05/13/17 05/13/17 14:52 16:01 17:55 Temperature 98.7 F Pulse Rate 111 H 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 Medical Decision Making - Lab Data Result diagrams: 05/13/17 15:36 05/13/17 15:36 Lab Results 05/13/17 05/13/17 05/13/17 Range/Units 15:36 15:36 15:36 WBC 6.0 (4.2-12.2) K/uL RBC 4.73 (3.80-5.40) M/uL Hgb 13.2 (11.6-16.0) gm/dl Hct 40.5 (35.0-47.0) % MCV 85.6 (81-97) fl MCH 27.9 (27-33) pg MCHC 32.6 (32-36) g/dl RDW 12.8 (11.5-14.5) % Plt Count 231 (130-400) K/uL MPV 12.5 H (7.4-10.4) fl Gran % 60.8 (47-80) % Lymphocytes % 32.7 (16-45) % Monocytes % 6.3 (0-9) % Eosinophils % 0.0 (0-6) % Basophils % 0.2 (0-6) % D-Dimer < 0.19 (0-0.59) mg/L FEU Sodium 139 (136-145) mmol/L Potassium 4.1 (3.4-4.5) mmol/L Chloride 100 (98-107) mmol/L Carbon Dioxide 26.0 (22-29) mmol/L Anion Gap 13.0 (7-16) BUN 24 H (6-20) mg/dL Creatinine 0.6 (0.5-0.9) mg/dL Estimated GFR > 60 mL/min Random Glucose 185 H (74-109) mg/dL Calcium 9.5 (8.6-10.0) mg/dL Total Bilirubin 0.20 (0.2-1.0) mg/dL AST 17 (10.0-35.0) U/L ALT 9 (<33) U/L Alkaline Phosphatase 90 (35-104) U/L Creatine Kinase 87 (26-192) U/L CK-MB (CK-2) 3.1 (<3.77) ng/mL Troponin T < 0.010 (0-0.010) ng/mL Total Protein 7.9 (6.6-8.7) g/dL Albumin 4.7 (4.0-5.0) g/dL Globulin 3.2 (1.4-4.8) gm/dL Albumin/Globulin Ratio 1.5 (1.1-1.8) 05/13/17 Range/Units 19:20 WBC (4.2-12.2) K/uL RBC (3.80-5.40) M/uL Hgb (11.6-16.0) gm/dl Hct (35.0-47.0) % MCV (81-97) fl MCH (27-33) pg MCHC (32-36) g/dl RDW (11.5-14.5) % Plt Count (130-400) K/uL MPV (7.4-10.4) fl Gran % (47-80) % Lymphocytes % (16-45) % Monocytes % (0-9) % Eosinophils % (0-6) % Basophils % (0-6) % D-Dimer (0-0.59) mg/L FEU Sodium (136-145) mmol/L Potassium (3.4-4.5) mmol/L Chloride (98-107) mmol/L Carbon Dioxide (22-29) mmol/L Anion Gap (7-16) BUN (6-20) mg/dL Creatinine (0.5-0.9) mg/dL Estimated GFR mL/min Random Glucose (74-109) mg/dL Calcium (8.6-10.0) mg/dL Total Bilirubin (0.2-1.0) mg/dL AST (10.0-35.0) U/L ALT (<33) U/L Alkaline Phosphatase (35-104) U/L Creatine Kinase (26-192) U/L CK-MB (CK-2) (<3.77) ng/mL Troponin T < 0.010 (0-0.010) ng/mL Total Protein (6.6-8.7) g/dL Albumin (4.0-5.0) g/dL Globulin (1.4-4.8) gm/dL Albumin/Globulin Ratio (1.1-1.8) Disposition Disposition: Discharge Clinical Impression: Heart palpitations Disposition: Home, Self-Care Condition: (2) Stable Instructions: Heart Palpitations (ED) Additional Instructions: Please continue your regular medicines. Please see your [facility] next week for recheck. Return to the ER for any problems or issues. Forms: Patient Portal Access Time of Disposition: 20:24 Quality - Quality Measures Quality Measures: N/A - Blood Pressure Screening Does Patient Have Any of the Following: No Blood Pressure Classification: Hypertensive Reading Systolic Measurement: 149 Diastolic Measurement: 77 Screening for High Blood Pressure: < First Hypertensive BP, F/U Documented > [ G8950] First Hypertensive Follow-up Interventions: Referral to alternative/primary care provider.
== END 2017-05-13 20:30 | disposition home or self-care (01) ==
LOC: ER 14:50
DX: R00.2 Palpitations (principal); I10 Essential (primary) hypertension; Z87.891 Personal history of nicotine dependence
CPT/HCPCS: 99284 ×2; 96374; 82550; 85025; 82553; 80053; 84484; 85379; 93005; 93010; J2060

== ENCOUNTER 2017-07-07 08:09 | Emergency (ER) | payer BC ==
--- NOTE | 2017-07-07 08:43 | Emergency Department Record ---
History of Present Illness - General Chief Complaint: Dizziness Stated Complaint: DIZZY/CRAMPS ARMS/SHOULDERS/LEGS Time Seen by Provider: 07/07/17 08:35 Source: Patient, RN notes reviewed Mode of Arrival: Ambulatory - History of Present Illness Initial Comments: patient states dizziness and lightheaded and weak and arms and legs are painful cramping and happening several times a day. Patient states happening three times a day and it lasts a few minutes and cramping in arms and legs started about a week ago and they are momentary sharp stabbing pains. Seen at [facility] ED one week ago for tachycardia and had labs and xrays and home after [address] Chelsea Murrell at [facility]. [employer]. Piedra. She gets a tingling feeling in her body when this happens. She doesn't think she is breathing fast at that time. PMH Sinus tachycardia and takes cardizem for that. PSH hysterectomy ,GB and two throat surgeries. 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 currently not dizzy or any muscle cramps or pains. MD Complaint: Dizziness Onset/Timin -: Days(s) Timing: Unsure - [place] Coma Scale Eye Response: (4) Open spontaneously Motor Response: (6) Obeys commands Verbal Response: (5) Oriented [place] Total: 15 - Related Data Allergies Allergy/AdvReac Type Severity Reaction Status Date / Time No Known Drug Allergies Allergy Verified 07/07/17 08:20 Travel Screening - Travel/Exposure Within Last 30 Days Have you traveled within the last 30 days?: No - Travel/Exposure Within Last Year Have you traveled outside the [place] in the last year?: No - Additonal Travel Details Have you been exposed to anyone with a communicable illness?: No - Travel Symptoms Symptom Screening: None Review of Systems Reviewed: No additional complaints except as noted below Constitutional: Reports: As per HPI. Denies: Chills, Fever, Malaise, Night sweats, Weakness, Weight change Eyes: Reports: As per HPI. Denies: Eye discharge, Eye pain, Photophobia, Vision change ENT: Reports: As per HPI. Denies: Congestion, Dental pain, Ear pain, Epistaxis , Hearing loss, Throat pain Respiratory: Reports: As per HPI. Denies: Cough, Dyspnea, Hemoptysis, Stridor, Wheezes Cardiovascular: Reports: As per HPI. Denies: Arrhythmia, Chest pain, Dyspnea on exertion, Edema, Murmurs, Orthopnea, Palpitations, Paroxysmal nocturnal dyspnea, Rheumatic Fever, Syncope Endocrine: Reports: As per HPI. Denies: Fatigue, Heat or cold intolerance, Polydipsia, Polyuria Gastrointestinal: Reports: As per HPI. Denies: Abdominal pain, Constipation, Diarrhea, Hematemesis, Hematochezia, Melena, Nausea, Vomiting Genitourinary: Reports: As per HPI. Denies: Abnormal menses, Discharge, Dyspareunia, Dysuria, Frequency, Hematuria, Incontinence, Retention, Urgency Musculoskeletal: Reports: As per HPI. Denies: Arthralgia, Back pain, Gout, Joint swelling, Myalgia, Neck pain Skin: Reports: As per HPI. Denies: Bruising, Change in color, Change in hair/ nails, Lesions, Pruritus, Rash Neurological: Reports: As per HPI, Tingling. Denies: Abnormal gait, Confusion, Headache, Numbness, Paresthesias, Seizure, Tremors, Vertigo, Weakness Psychiatric: Reports: As per HPI. Denies: Anxiety, Auditory hallucinations, Depression, Homicidal thoughts, Suicidal thoughts, Visual hallucinations Hematological/Lymphatic: Reports: As per HPI. Denies: Anemia, Blood Clots, Easy bleeding, Easy bruising, Swollen glands Past Medical History - SOCIAL HISTORY Smoking Status: Former smoker Alcohol Use: None Drug Use: None - RESPIRATORY Hx Respiratory Disorders: Yes Hx Pneumonia: Yes - CARDIOVASCULAR Hx Cardio Disorders: Yes Hx Hypertension: Yes Hx Irregular Heartbeat: Yes (currently being evaluated) Comment:: inappropriate tachycardia - NEURO Hx Neuro Disorders: No - GI Hx GI Disorders: No - Hx Genitourinary Disorders: No - ENDOCRINE Hx Endocrine Disorders: No - MUSCULOSKELETAL Hx Musculoskeletal Disorders: No - PSYCH Hx Psych Problems: Yes Hx Anxiety: Yes Hx Depression: Yes - HEMATOLOGY/ONCOLOGY Hx Hematology/Oncology Disorders: No Family Medical History Any Significant Family History?: Yes Family Hx Comment (NOT TO BE USED IN PLACE OF ITEMS BELOW): mom w/ MS Hx Cancer: Grandparents Hx Diabetes: Father Physical Exam - General General Appearance: Alert, Oriented x3, Cooperative, No acute distress - Head Head exam: Normal inspection - Eye Eye exam: Normal appearance, PERRL Pupils: Normal accommodation - ENT ENT exam: Normal exam, Mucous membranes moist, Normal external ear exam, Normal orophraynx, TM's normal bilaterally Ear exam: Normal external inspection. negative: External canal tenderness Nasal Exam: Normal inspection. negative: Discharge, Sinus tenderness Mouth exam: Normal external inspection, Tongue normal Teeth exam: Normal inspection. negative: Dental caries Throat exam: Normal inspection. negative: Tonsillar erythema, Tonsillar exudate - Neck Neck exam: Normal inspection, Full ROM. negative: Tenderness - Respiratory Respiratory exam: Normal lung sounds bilaterally. negative: Respiratory distress - Cardiovascular Cardiovascular Exam: Regular rate, Normal rhythm, Normal heart sounds - GI/Abdominal GI/Abdominal exam: Soft, Normal bowel sounds. negative: Tenderness - Rectal Rectal exam: Deferred - exam: Deferred - Extremities Extremities exam: Normal inspection, Full ROM, Normal capillary refill. negative: Tenderness - Back Back exam: Reports: Normal inspection, Full ROM. Denies: Muscle spasm, Rash noted, Tenderness - Neurological Neurological exam: Alert, Normal gait, Oriented X3, Reflexes normal - Psychiatric Psychiatric exam: Normal affect, Normal mood - Skin Skin exam: Dry, Intact, Normal color, Warm Course Vital Signs 07/07/17 08:13 Temperature 98.4 F Pulse Rate 97 H Respiratory 18 Rate Blood Pressure 147/79 Pulse Ox 98 Medical Decision Making - Data Complexity MDM Data: Labs Ordered and/or Reviewed (urine sp gravity 1.015), EKG Ordered and /or Reviewed (No acute changes, similiar to EKG done on 05/13/2017) - Lab Data Result diagrams: 07/07/17 08:32 07/07/17 08:32 Disposition Clinical Impression: Dizziness, Dehydration, Muscle cramps Disposition: Home, Self-Care Condition: (1) Good Instructions: Dizziness (ED), Dehydration (ED) Additional Instructions: follow up with family in one week Forms: Patient Portal Access Time of Disposition: 09:57 Quality - Quality Measures Quality Measures: N/A - Blood Pressure Screening Does Patient Have Any of the Following: No Blood Pressure Classification: Hypertensive Reading Systolic Measurement: 147 Diastolic Measurement: 79 Screening for High Blood Pressure: < Pre-Hypertensive BP, F/U Documented > [ G8950] Pre-Hypertensive Follow-up Interventions: Referral to alternative/primary care provider.
[2017-07-07] MEDS: ASPIRIN 81 MG CHEWABLE TABLET PO ONE (09:03)
[2017-07-07 09:10] LABS: BASO % 0.3 % (0-6); EOS % 1.4 % (0-6); GRAN % 41.4 % (47-80); HEMATOCRIT 37.8 % (35.0-47.0); HEMOGLOBIN 12.1 gm/dl (11.6-16.0); LYMPH % 44.2 % (16-45); MEAN CELL VOLUME 89.2 fl (81-97); MEAN CORPUSCULAR HEMOGLOBIN 28.5 pg (27-33); MEAN PLATELET VOLUME 12.2 fl (7.4-10.4); MONO % 12.7 % (0-9); PLATELET COUNT 216 K/uL (130-400); RED BLOOD COUNT 4.24 M/uL (3.80-5.40); RED CELL DISTRIBUTION WIDTH 12.5 % (11.5-14.5); WHITE BLOOD COUNT W/O DIFF 5.9 K/uL (4.2-12.2)
[2017-07-07 09:13] LABS: URINE APPEARANCE CLEAR; URINE BILIRUBIN NEGATIVE (NEGATIVE); URINE BLOOD NEGATIVE (NEGATIVE); URINE COLOR YELLOW; URINE GLUCOSE (UA) NEGATIVE (NEGATIVE); URINE KETONE NEGATIVE (NEGATIVE); URINE LEUKOCYTE ESTERASE TRACE (NEGATIVE); URINE NITRITE NEGATIVE (NEGATIVE); URINE PROTEIN NEGATIVE (NEGATIVE); URINE UROBILINOGEN 0.2 E.U./dL (0.20 - 1.00)
[2017-07-07 09:17] LABS: AMPHETAMINE SCREEN URINE NOT DETECTED; BARBITURATE SCREEN URINE NOT DETECTED; BENZODIAZEPINE SCREEN URINE NOT DETECTED; COCAINE SCREEN URINE NOT DETECTED; METHADONE SCREEN URINE DETECTED; METHAMPHETAMINE SCREEN NOT DETECTED; OPIATE SCREEN URINE NOT DETECTED; OXYCODONE SCREEN URINE NOT DETECTED; PHENCYCLIDINE SCREEN URINE NOT DETECTED; PROPOXYPHENE SCREEN URINE NOT DETECTED; THC SCREEN URINE NOT DETECTED; TRICYCLIC ANTIDEPRESSANT SCRN NOT DETECTED
[2017-07-07 09:17] LABS: BLOOD UREA NITROGEN 24 mg/dL (6-20); CREATININE 0.6 mg/dL (0.5-0.9); EST GLOMERULAR FILTRATION RATE > 60 mL/min
[2017-07-07 09:20] LABS: GLUCOSE,RANDOM 110 mg/dL (74-109)
[2017-07-07 09:20] LABS: URINE RBC NONE SEEN (NONE SEEN); URINE WBC 0 - 2 (0-2/hpf)
[2017-07-07 09:23] LABS: CREATINE PHOSPHOKINASE 97 U/L (26-192)
[2017-07-07 09:25] LABS: CKMB 3.1 ng/mL (<3.77)
[2017-07-07 09:33] LABS: THYROID STIMULATING HORMONE 3.44 uIU/mL (0.270-4.20)
== END 2017-07-07 10:17 | disposition home or self-care (01) ==
LOC: ER 08:09
DX: R42 Dizziness and giddiness (principal); E86.0 Dehydration; R25.2 Cramp and spasm; I10 Essential (primary) hypertension; Z87.891 Personal history of nicotine dependence
CPT/HCPCS: 80048; 80305; 81001; 82550; 82553; 83735; 84443; 84484; 85025; 85730; 93005; 93010; 99284

== ENCOUNTER 2017-07-19 08:26 | Emergency (ER) | payer BC ==
--- NOTE | 2017-07-19 08:47 | Emergency Department Record ---
History of Present Illness - General Chief Complaint: Headache Migraine Stated Complaint: MARK Time Seen by Provider: 07/19/17 08:45 Source: Patient Mode of Arrival: Ambulatory Limitations: No limitations - History of Present Illness Initial Comments: 42 yo female presents to ED for evaluation of "sinus pressure for 3 days causing a headache" and runny nose symptoms. Patient reports that her headache symptoms are 4/10, denies fevers, chills, or neck stiffness symptoms. Patient reports previous history of SVT and intermittent headache symptoms. MD Complaint: Headache Onset/Timin -: Days(s) Onset Description: Gradual Location: Frontal Severity: Mild Severity scale (1-10): 4 Quality: Aching Consistency: Other Improves With: Nothing Worsens With: None Context: Other Associated Symptoms: Photophobia Treatments Prior to Arrival: Acetaminophen - Related Data Previous Rx's Medication Instructions Recorded Amoxicillin [Amoxil] 875 mg PO BID #20 tab 07/19/17 Allergies Allergy/AdvReac Type Severity Reaction Status Date / Time No Known Drug Allergies Allergy Verified 07/19/17 08:38 Travel Screening - Travel/Exposure Within Last 30 Days Have you traveled within the last 30 days?: Yes Location Detail:: [place] - Travel/Exposure Within Last Year Have you traveled outside the [place] in the last year?: No - Additonal Travel Details Have you been exposed to anyone with a communicable illness?: No - Travel Symptoms Symptom Screening: None Review of Systems Constitutional: Denies: Chills, Fever, Malaise, Night sweats Eyes: Denies: Eye discharge, Eye pain ENT: Reports: Congestion. Denies: Ear pain, Epistaxis Respiratory: Denies: Cough, Dyspnea Cardiovascular: Denies: Chest pain, Dyspnea on exertion Endocrine: Denies: Fatigue, Heat or cold intolerance Gastrointestinal: Denies: Abdominal pain, Nausea, Vomiting Genitourinary: Denies: Incontinence, Retention Musculoskeletal: Denies: Arthralgia, Back pain Skin: Denies: Bruising, Change in color Neurological: Denies: Abnormal gait, Confusion, Headache Psychiatric: Denies: Anxiety Hematological/Lymphatic: Denies: Anemia, Blood Clots Past Medical History - SOCIAL HISTORY Smoking Status: Former smoker Alcohol Use: None Drug Use: None - RESPIRATORY Hx Respiratory Disorders: Yes Hx Pneumonia: Yes - CARDIOVASCULAR Hx Cardio Disorders: Yes Hx Hypertension: Yes Hx Irregular Heartbeat: Yes (currently being evaluated) Comment:: inappropriate tachycardia - NEURO Hx Neuro Disorders: No - GI Hx GI Disorders: No - Hx Genitourinary Disorders: No - ENDOCRINE Hx Endocrine Disorders: No - MUSCULOSKELETAL Hx Musculoskeletal Disorders: No - PSYCH Hx Psych Problems: Yes Hx Anxiety: Yes Hx Depression: Yes - HEMATOLOGY/ONCOLOGY Hx Hematology/Oncology Disorders: No Family Medical History Any Significant Family History?: No Family Hx Comment (NOT TO BE USED IN PLACE OF ITEMS BELOW): mom w/ MS Hx Cancer: Grandparents Hx Diabetes: Father Physical Exam - General General Appearance: Alert, Oriented x3, Cooperative, Mild distress Limitations: No limitations - Head Head exam: Atraumatic, Normocephalic, Normal inspection Head exam detail: negative: Abrasion, Contusion, Tristan's sign, General tenderness, Hematoma, Laceration - Eye Eye exam: Normal appearance. negative: Conjunctival injection, Periorbital swelling, Periorbital tenderness, Scleral icterus - ENT Ear exam: negative: Auricular hematoma, Auricular trauma Nasal Exam: negative: Active bleeding, Discharge, Dried blood, Foreign body Mouth exam: negative: Drooling, Laceration, Muffled voice, Tongue elevation - Neck Neck exam: Normal inspection. negative: Meningismus, Tenderness - Respiratory Respiratory exam: Normal lung sounds bilaterally. negative: Rales, Respiratory distress, Rhonchi, Stridor - Cardiovascular Cardiovascular Exam: Regular rate, Normal rhythm, Normal heart sounds - GI/Abdominal GI/Abdominal exam: Soft. negative: Rebound, Rigid, Tenderness - Rectal Rectal exam: Deferred - exam: Deferred - Extremities Extremities exam: Normal inspection. negative: Calf tenderness, Pedal edema, Tenderness - Back Back exam: Denies: CVA tenderness (R), CVA tenderness (L) - Neurological Neurological exam: Alert, Normal gait, Oriented X3 - Psychiatric Psychiatric exam: Normal affect, Normal mood - Skin Skin exam: Normal color. negative: Abrasion Type of lesion: negative: abrasion Course Vital Signs 07/19/17 08:33 Temperature 98.2 F Pulse Rate 102 H Respiratory 16 Rate Blood Pressure 139/79 Pulse Ox 97 - Reevaluation(s) Reevaluation #1: 07/19/17 08:50 Patient was seen and examined, will treat for probable sinusitis with instructions for follow-up with her PCP in 3-5 days as directed. Patient agrees with the plan of care as discussed. Disposition Disposition: Discharge Clinical Impression: Sinus headache Disposition: Home, Self-Care Condition: (2) Stable Instructions: Sinusitis (ED) Additional Instructions: Return to ED if your symptoms worsen or if you have any concerns. Amoxicillin as directed. Follow-up with your family doctor in 3-5 days as directed. Prescriptions: Amoxicillin [Amoxil] 875 mg PO BID #20 tab Forms: Patient Portal Access Time of Disposition: 08:47 Quality - Quality Measures Quality Measures: N/A - Blood Pressure Screening Does Patient Have Any of the Following: No Blood Pressure Classification: Pre-Hypertensive BP Reading Systolic Measurement: 139 Diastolic Measurement: 79 Screening for High Blood Pressure: < Pre-Hypertensive BP, F/U Documented > [ G8950] Pre-Hypertensive Follow-up Interventions: Referral to alternative/primary care provider.
== END 2017-07-19 08:59 | disposition home or self-care (01) ==
LOC: ER 08:26
DX: J32.9 Chronic sinusitis, unspecified (principal); I10 Essential (primary) hypertension; F17.210 Nicotine dependence, cigarettes, uncomplicated
CPT/HCPCS: 99282

== ENCOUNTER 2017-07-24 07:44 | Emergency (ER) | payer BC ==
[2017-07-24] MEDS ORDERED: LORAZEPAM 2 MG/ML VIAL IV ONE ×2 (08:04→08:45)
[2017-07-24] MEDS ORDERED: 0.9 % SODIUM CHLORIDE 1,000 ML BAG IV ONE (08:04)
--- NOTE | 2017-07-24 08:09 | Emergency Department Record ---
History of Present Illness - General Chief Complaint: Abrasion Stated Complaint: HAVING REACTION TO NEW MEDS Time Seen by Provider: 07/24/17 08:01 Source: Patient Mode of Arrival: Ambulatory - History of Present Illness Initial Commments: The patient is here due to severe anxiety. She started a new medicine today ( Effexor) and one hour after taking it she became very anxious and developed heart palpitations. She has a long hx of similar issues with anxiety and palpitations. the patient denies any Cp, SOB, or MARISA. Onset/Timin -: Hour(s) Place: Home Associated Symptoms: None Treatments Prior to Arrival: Other Treatment Prior to Arrival Comment:: Usual morning meds - Armando Coma Scale Eye Response: (4) Open spontaneously Motor Response: (6) Obeys commands Verbal Response: (5) Oriented [place] Total: 15 - Related Data Home Medications Medication Instructions Recorded Confirmed Last Taken Venlafaxine HCl [Effexor Xr] 37.5 mg PO DAILY 07/24/17 07/24/17 07/24/17 Previous Rx's Medication Instructions Recorded Amoxicillin [Amoxil] 875 mg PO BID #20 tab 07/19/17 Allergies Allergy/AdvReac Type Severity Reaction Status Date / Time No Known Drug Allergies Allergy Verified 07/24/17 07:51 Travel Screening - Travel/Exposure Within Last 30 Days Have you traveled within the last 30 days?: Yes Location Detail:: [facility] - Travel/Exposure Within Last Year Have you traveled outside the [place] in the last year?: No - Additonal Travel Details Have you been exposed to anyone with a communicable illness?: No - Travel Symptoms Symptom Screening: None Review of Systems Constitutional: Denies: Chills, Fever Eyes: Denies: Eye discharge ENT: Denies: Congestion Respiratory: Denies: Cough, Dyspnea Past Medical History - SOCIAL HISTORY Smoking Status: Former smoker Alcohol Use: None Drug Use: None - RESPIRATORY Hx Respiratory Disorders: Yes Hx Pneumonia: Yes - CARDIOVASCULAR Hx Cardio Disorders: Yes Hx Hypertension: Yes Hx Irregular Heartbeat: Yes (currently being evaluated) Comment:: inappropriate tachycardia - NEURO Hx Neuro Disorders: No - GI Hx GI Disorders: No - Hx Genitourinary Disorders: No - ENDOCRINE Hx Endocrine Disorders: No - MUSCULOSKELETAL Hx Musculoskeletal Disorders: No - PSYCH Hx Psych Problems: Yes Hx Anxiety: Yes Hx Depression: Yes - HEMATOLOGY/ONCOLOGY Hx Hematology/Oncology Disorders: No Family Medical History Any Significant Family History?: Yes Family Hx Comment (NOT TO BE USED IN PLACE OF ITEMS BELOW): mom w/ MS Hx Cancer: Grandparents Hx Diabetes: Father Physical Exam - General General Appearance: Alert, Oriented x3, Cooperative, Mild distress (due to anxiety.) - Head Head exam: Atraumatic, Normocephalic - Eye Eye exam: Normal appearance, PERRL - Neck Neck exam: Normal inspection, Full ROM. negative: Tenderness - Respiratory Respiratory exam: Normal lung sounds bilaterally. negative: Respiratory distress - Cardiovascular Cardiovascular Exam: Normal rhythm, Normal heart sounds, Tachycardia - GI/Abdominal GI/Abdominal exam: Soft, Normal bowel sounds. negative: Tenderness - Extremities Extremities exam: Normal inspection, Full ROM, Normal capillary refill. negative: Tenderness - Neurological Neurological exam: Alert. negative: Abnormal gait, Motor sensory deficit - Psychiatric Psychiatric exam: Anxious Course Vital Signs 07/24/17 07:53 Temperature 98.2 F Pulse Rate 142 H Respiratory 24 Rate Blood Pressure 169/88 Pulse Ox 100 - Reevaluation(s) Reevaluation #1: The patient is doing much better at this time. She is resting comfortably with no palpitations, pain, or SOB. On recheck her HR is 90-100. She feels much better and is ready for home. 07/24/17 09:30 Reevaluation #2: The patient is doing very well at this time. Her HR now is in the 70's and she is resting comfortably. She is ready for home. 07/24/17 09:42 Medical Decision Making - Data Complexity MDM Data: EKG Ordered and/or Reviewed - Lab Data Result diagrams: 07/24/17 08:20 07/24/17 08:20 - EKG Data -: EKG Interpreted by Me (Sinus tach at 145.) Disposition Disposition: Discharge Clinical Impression: Adverse drug experience Qualifiers: Encounter type: initial encounter Qualified Code(s): T88.7XXA - Unspecified adverse effect of drug or medicament, initial encounter Disposition: Home, Self-Care Condition: (2) Stable Instructions: Adverse Drug Reaction (ED) Additional Instructions: Please stop the Effexor and continue your other regular medicines. Please take the Ativan in 12 hours if needed for anxiety. Please call you doctor on Wednesday for further instructions and return to the ER for any worsening symptoms. Forms: Patient Portal Access Time of Disposition: 09:33 Quality - Quality Measures Quality Measures: N/A - Blood Pressure Screening View Details: Yes Does Patient Have Any of the Following: No Blood Pressure Classification: Pre-Hypertensive BP Reading Systolic Measurement: 169 Diastolic Measurement: 88 Screening for High Blood Pressure: < Pre-Hypertensive BP, F/U Documented > [ G8950] Pre-Hypertensive Follow-up Interventions: Referral to alternative/primary care provider.
[2017-07-24 08:30] LABS: HEMATOCRIT 38.3 % (35.0-47.0); HEMOGLOBIN 12.5 gm/dl (11.6-16.0); MEAN CELL VOLUME 88.2 fl (81-97); MEAN CORPUSCULAR HEMOGLOBIN 28.8 pg (27-33); MEAN CORPUSCULAR HGB CONC 32.6 g/dl (32-36); MEAN PLATELET VOLUME 12.1 fl (7.4-10.4); PLATELET COUNT 218 K/uL (130-400); RED BLOOD COUNT 4.34 M/uL (3.80-5.40); RED CELL DISTRIBUTION WIDTH 12.1 % (11.5-14.5); WHITE BLOOD COUNT W/O DIFF 4.6 K/uL (4.2-12.2)
[2017-07-24 08:41] LABS: BILIRUBIN,TOTAL < 0.20 mg/dL (0.2-1.0); BLOOD UREA NITROGEN 22 mg/dL (6-20); CREATININE 0.6 mg/dL (0.5-0.9); EST GLOMERULAR FILTRATION RATE > 60 mL/min; PLATELET ESTIMATE NORMAL (NORMAL); TOTAL PROTEIN 7.2 g/dL (6.6-8.7)
[2017-07-24 08:43] LABS: GLUCOSE,RANDOM 117 mg/dL (74-109)
[2017-07-24 08:46] LABS: ALB/GLOB RATIO 1.4 (1.1-1.8); ALBUMIN 4.2 g/dL (4.0-5.0); ALKALINE PHOSPHATASE 79 U/L (35-104); ALT/SGPT 14 U/L (<33); AST/SGOT 19 U/L (10.0-35.0)
[2017-07-24] MEDS ORDERED: LORAZEPAM 0.5 MG TABLET PO ONE (09:33)
== END 2017-07-24 09:51 | disposition home or self-care (01) ==
LOC: ER 07:44
DX: R00.2 Palpitations (principal); T43.215A Adverse effect of selective serotonin and norepinephrine reuptake inhibitors, initial encounter; I10 Essential (primary) hypertension; Z87.891 Personal history of nicotine dependence; Y92.009 Unspecified place in unspecified non-institutional (private) residence as the place of occurrence of the external cause
CPT/HCPCS: 80053; 85027; 93005; 93010; 96374; 96376; 99284; J7030

== ENCOUNTER 2017-09-22 08:16 | Emergency (ER) | payer BC ==
[2017-09-22] MEDS ORDERED: ASPIRIN 81 MG CHEWABLE TABLET PO ONE (08:40)
[2017-09-22] MEDS ORDERED: LORAZEPAM 2 MG/ML VIAL IV ONE (08:47)
--- NOTE | 2017-09-22 08:47 | Emergency Department Record ---
Anxiety - General Chief Complaint: Anxiety Stated Complaint: ANXIETY?/THINKS HEART RACING Time Seen by Provider: 09/22/17 08:23 Mode of Arrival: Ambulatory - History of Present Illness Initial Comments: patient was up and anxious at 5:30am she developed fast breathing and numbness in the hands and tachycardia. 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 She is feeling better now but tearful. She states some chest discomfort with the fast heart beats. currently pulse is 93. She was layed off from work about one week ago. Onset/Timin -: Hour(s) Symptoms: Dry mouth, Other Place: Home Previous History of Same: Yes Severity: Mild Quality: Intermittant Provoking factors: None known Improves With: Nothing Worsens With: Nothing Associated symptoms: Denies other symptoms - Related Data Allergies/Adverse Reactions: Allergies Allergy/AdvReac Type Severity Reaction Status Date / Time No Known Drug Allergies Allergy Verified 09/22/17 08:22 Travel Screening - Travel/Exposure Within Last 30 Days Have you traveled within the last 30 days?: No - Travel/Exposure Within Last Year Have you traveled outside the [place] in the last year?: No - Additonal Travel Details Have you been exposed to anyone with a communicable illness?: No - Travel Symptoms Symptom Screening: None Review of Systems Reviewed: No additional complaints except as noted below Constitutional: Reports: As per HPI. Denies: Chills, Fever, Malaise, Night sweats, Weakness, Weight change Eyes: Reports: As per HPI. Denies: Eye discharge, Eye pain, Photophobia, Vision change ENT: Reports: As per HPI. Denies: Congestion, Dental pain, Ear pain, Epistaxis , Hearing loss, Throat pain Respiratory: Reports: As per HPI. Denies: Cough, Dyspnea, Hemoptysis, Stridor, Wheezes Cardiovascular: Reports: As per HPI. Denies: Arrhythmia, Chest pain, Dyspnea on exertion, Edema, Murmurs, Orthopnea, Palpitations, Paroxysmal nocturnal dyspnea, Rheumatic Fever, Syncope Endocrine: Reports: As per HPI. Denies: Fatigue, Heat or cold intolerance, Polydipsia, Polyuria Gastrointestinal: Reports: As per HPI. Denies: Abdominal pain, Constipation, Diarrhea, Hematemesis, Hematochezia, Melena, Nausea, Vomiting Genitourinary: Reports: As per HPI. Denies: Abnormal menses, Discharge, Dyspareunia, Dysuria, Frequency, Hematuria, Incontinence, Retention, Urgency Musculoskeletal: Reports: As per HPI. Denies: Arthralgia, Back pain, Gout, Joint swelling, Myalgia, Neck pain Skin: Reports: As per HPI. Denies: Bruising, Change in color, Change in hair/ nails, Lesions, Pruritus, Rash Neurological: Reports: As per HPI. Denies: Abnormal gait, Confusion, Headache, Numbness, Paresthesias, Seizure, Tingling, Tremors, Vertigo, Weakness Psychiatric: Reports: As per HPI. Denies: Anxiety, Auditory hallucinations, Depression, Homicidal thoughts, Suicidal thoughts, Visual hallucinations Hematological/Lymphatic: Reports: As per HPI. Denies: Anemia, Blood Clots, Easy bleeding, Easy bruising, Swollen glands Past Medical History - SOCIAL HISTORY Smoking Status: Former smoker Alcohol Use: None Drug Use: None - RESPIRATORY Hx Respiratory Disorders: Yes Hx Pneumonia: Yes - CARDIOVASCULAR Hx Cardio Disorders: Yes Hx Hypertension: Yes Hx Irregular Heartbeat: Yes (currently being evaluated) Comment:: inappropriate tachycardia - NEURO Hx Neuro Disorders: No - GI Hx GI Disorders: No - Hx Genitourinary Disorders: No - ENDOCRINE Hx Endocrine Disorders: No - MUSCULOSKELETAL Hx Musculoskeletal Disorders: No - PSYCH Hx Psych Problems: Yes Hx Anxiety: Yes Hx Depression: Yes - HEMATOLOGY/ONCOLOGY Hx Hematology/Oncology Disorders: No Family Medical History Any Significant Family History?: Yes Family Hx Comment (NOT TO BE USED IN PLACE OF ITEMS BELOW): mom w/ MS Hx Cancer: Grandparents Hx Diabetes: Father Physical Exam - General General Appearance: Alert, Oriented x3, Cooperative, No acute distress - Head Head exam: Normal inspection - Eye Eye exam: Normal appearance, PERRL Pupils: Normal accommodation - ENT ENT exam: Normal exam, Mucous membranes moist, Normal external ear exam, Normal orophraynx, TM's normal bilaterally Ear exam: Normal external inspection. negative: External canal tenderness Nasal Exam: Normal inspection. negative: Discharge, Sinus tenderness Mouth exam: Normal external inspection, Tongue normal Teeth exam: Normal inspection. negative: Dental caries Throat exam: Normal inspection. negative: Tonsillar erythema, Tonsillar exudate - Neck Neck exam: Normal inspection, Full ROM. negative: Tenderness - Respiratory Respiratory exam: Normal lung sounds bilaterally. negative: Respiratory distress - Cardiovascular Cardiovascular Exam: Regular rate, Normal rhythm, Normal heart sounds - GI/Abdominal GI/Abdominal exam: Soft, Normal bowel sounds. negative: Tenderness - Rectal Rectal exam: Deferred - exam: Deferred - Extremities Extremities exam: Normal inspection, Full ROM, Normal capillary refill. negative: Tenderness - Back Back exam: Reports: Normal inspection, Full ROM. Denies: Muscle spasm, Rash noted, Tenderness - Neurological Neurological exam: Alert, Normal gait, Oriented X3, Reflexes normal - Psychiatric Psychiatric exam: Normal affect, Normal mood - Skin Skin exam: Dry, Intact, Normal color, Warm Course Vital Signs 09/22/17 08:23 Temperature 98.8 F Pulse Rate 119 H Respiratory 20 Rate Blood Pressure 153/75 Pulse Ox 96 patient is feeling better and her heart rate is 68 Medical Decision Making - Lab Data Result diagrams: 09/22/17 08:30 09/22/17 08:30 Disposition Clinical Impression: Panic attack, Palpitation Disposition: Home, Self-Care Condition: (1) Good Instructions: Social Anxiety Disorder (ED) Additional Instructions: follow up with family in one week increase buspar by 5 mg per day(one third of a 15 mg pill) Drink lots of fluid Forms: Patient Portal Access Time of Disposition: 09:42 Quality - Quality Measures Quality Measures: N/A - Blood Pressure Screening Does Patient Have Any of the Following: No Blood Pressure Classification: Hypertensive Reading Systolic Measurement: 153 Diastolic Measurement: 75 Screening for High Blood Pressure: < First Hypertensive BP, F/U Documented > [ G8950] First Hypertensive Follow-up Interventions: Referral to alternative/primary care provider.
[2017-09-22 08:53] LABS: HEMATOCRIT 38.8 % (35.0-47.0); HEMOGLOBIN 12.9 gm/dl (11.6-16.0); MEAN CELL VOLUME 88.2 fl (81-97); MEAN CORPUSCULAR HEMOGLOBIN 29.3 pg (27-33); MEAN CORPUSCULAR HGB CONC 33.2 g/dl (32-36); MEAN PLATELET VOLUME 12.3 fl (7.4-10.4); PLATELET COUNT 213 K/uL (130-400); RED CELL DISTRIBUTION WIDTH 12.3 % (11.5-14.5); WHITE BLOOD COUNT W/O DIFF 6.1 K/uL (4.2-12.2)
[2017-09-22 09:04] LABS: BLOOD UREA NITROGEN 26 mg/dL (6-20); CREATININE 0.7 mg/dL (0.5-0.9); EST GLOMERULAR FILTRATION RATE > 60 mL/min
[2017-09-22 09:07] LABS: GLUCOSE,RANDOM 99 mg/dL (74-109)
[2017-09-22 09:15] LABS: PLATELET ESTIMATE NORMAL (NORMAL)
== END 2017-09-22 09:54 | disposition home or self-care (01) ==
LOC: ER 08:16
DX: F41.0 Panic disorder [episodic paroxysmal anxiety] (principal); R00.2 Palpitations; R07.9 Chest pain, unspecified; R20.0 Anesthesia of skin; I10 Essential (primary) hypertension; Z87.891 Personal history of nicotine dependence
CPT/HCPCS: 80048; 84484; 85027; 85730; 93005; 93010; 96374; 99284

== ENCOUNTER 2017-11-17 14:07 | Emergency (ER) | payer BC ==
[2017-11-17] MEDS ORDERED: KETOROLAC 30 MG/ML VIAL IM ONE (14:29)
--- NOTE | 2017-11-17 14:38 | Emergency Department Record ---
History of Present Illness - General Chief Complaint: Back Pain/Injury Stated Complaint: LOWER BACK PAIN Time Seen by Provider: 11/17/17 14:22 Source: Patient Mode of Arrival: Ambulatory Limitations: No limitations - History of Present Illness Initial Comments: The patient is here due to tailbone pain for about 2 weeks. She denies any fall or injury. The pain is sometimes sharp and then dull only in the tailbone area. There is no lumbar pain, radicular pain, leg weakness, or numbness or any AP. The pain is much worse with any walking or movement. She has had similar issues about 3 years ago due to a Coccyx bruise. MD Complaint: Back pain Onset/Timin -: Week(s) Similar Symptoms Previously: Yes Severity scale (1-10): 5 Quality: Dull, Sharp Consistency: Intermittent Improves With: None Worsens With: Movement, Sitting upright Context: Unknown Associated Symptoms: Denies other symptoms Treatments Prior to Arrival: Acetaminophen, NSAIDS - Related Data Home Medications Medication Instructions Recorded Confirmed Last Taken Hydroxyzine Pamoate [Vistaril] 25 mg PO TID 11/17/17 11/17/17 11/17/17 Allergies Allergy/AdvReac Type Severity Reaction Status Date / Time No Known Drug Allergies Allergy Verified 11/17/17 14:16 Travel Screening - Travel/Exposure Within Last 30 Days Have you traveled within the last 30 days?: No - Travel/Exposure Within Last Year Have you traveled outside the [place] in the last year?: No - Additonal Travel Details Have you been exposed to anyone with a communicable illness?: No - Travel Symptoms Symptom Screening: None Review of Systems Constitutional: Denies: Chills, Fever Eyes: Denies: Eye discharge ENT: Denies: Congestion Respiratory: Denies: Cough, Dyspnea Past Medical History - SOCIAL HISTORY Smoking Status: Former smoker Alcohol Use: None Drug Use: None - RESPIRATORY Hx Respiratory Disorders: Yes Hx Pneumonia: Yes - CARDIOVASCULAR Hx Cardio Disorders: Yes Hx Hypertension: Yes Hx Irregular Heartbeat: Yes (currently being evaluated) Comment:: inappropriate tachycardia - NEURO Hx Neuro Disorders: No - GI Hx GI Disorders: No - Hx Genitourinary Disorders: No - ENDOCRINE Hx Endocrine Disorders: No - MUSCULOSKELETAL Hx Musculoskeletal Disorders: No - PSYCH Hx Psych Problems: Yes Hx Anxiety: Yes Hx Depression: Yes - HEMATOLOGY/ONCOLOGY Hx Hematology/Oncology Disorders: No Family Medical History Any Significant Family History?: Yes Family Hx Comment (NOT TO BE USED IN PLACE OF ITEMS BELOW): mom w/ MS Hx Cancer: Grandparents Hx Diabetes: Father Physical Exam - General General Appearance: Alert, Oriented x3, Cooperative, No acute distress - Head Head exam: Atraumatic, Normocephalic, Normal inspection - Eye Eye exam: Normal appearance, PERRL - Neck Neck exam: Normal inspection, Full ROM. negative: Tenderness - Respiratory Respiratory exam: Normal lung sounds bilaterally. negative: Respiratory distress - Cardiovascular Cardiovascular Exam: Regular rate, Normal rhythm, Normal heart sounds - GI/Abdominal GI/Abdominal exam: Soft, Normal bowel sounds. negative: Rebound, Rigid, Tenderness - Extremities Extremities exam: Normal inspection, Full ROM, Normal capillary refill. negative: Tenderness - Back Back exam: Reports: Normal inspection, Tenderness (There is mild tenderness over the coccygeal region but no swelling, bruising, or erythema is appreciated. ). Denies: CVA tenderness (R), CVA tenderness (L), Paraspinal tenderness, Rash noted, Vertebral tenderness - Neurological Neurological exam: Alert, Normal gait. negative: Abnormal gait, Motor sensory deficit Course Vital Signs 11/17/17 14:17 Temperature 98 F Pulse Rate 94 H Respiratory 20 Rate Blood Pressure 134/85 Pulse Ox 99 - Reevaluation(s) Reevaluation #1: The patient is doing better at this time. The pain is improved and she is ambulating normally. I did discuss the need to ice the area and see her PCP next week for recheck. 11/17/17 14:58 Disposition Disposition: Discharge Clinical Impression: Coccydynia Disposition: Home, Self-Care Condition: (2) Stable Instructions: Coccyx Injury (ED) Additional Instructions: Please use ice to the area of pain and continue your home pain medicines. Please see your family doctor next week as planned and return to the ER for any worsening symptoms. Forms: Patient Portal Access Time of Disposition: 14:58 Quality - Quality Measures Quality Measures: N/A - Blood Pressure Screening View Details: Yes Does Patient Have Any of the Following: No Blood Pressure Classification: Pre-Hypertensive BP Reading Systolic Measurement: 134 Diastolic Measurement: 85 Screening for High Blood Pressure: < Pre-Hypertensive BP, F/U Documented > [ G8950] Pre-Hypertensive Follow-up Interventions: Referral to alternative/primary care provider.
== END 2017-11-17 15:11 | disposition home or self-care (01) ==
LOC: ER 14:07
DX: M53.3 Sacrococcygeal disorders, not elsewhere classified (principal); M54.5 Low back pain; I10 Essential (primary) hypertension; Z87.891 Personal history of nicotine dependence
CPT/HCPCS: 99283 ×2; 96372; J1885

== ENCOUNTER 2017-12-11 07:51 | Emergency (ER) | payer BC ==
--- NOTE | 2017-12-11 08:04 | Emergency Department Record ---
History of Present Illness - General Chief complaint: Extremity Problem Stated complaint: RT ARM PAIN Time Seen by Provider: 12/11/17 07:54 Source: Patient Mode of Arrival: Ambulatory Limitations: No limitations - History of Present Illness Initial comments: 42 yo female presents with right arm pain and swelling since the first of the week. She was started on HRT 2 months ago for night sweats. No trauma. No history of DVT. She saw her PCP Dr Murrell Wednesday. A doppler is scheduled for Wednesday at [facility]. No chest pain or shortness of breath. She feels like the pain and swelling have increased. No warmth or redness. MD Complaint: Extremity pain, Extremity swelling -: Days(s) Location: Right, Arm, Forearm -: Yes Myalgia Radiation: Distal Quality: Aching Consistency: Constant Improves with: Nothing Worsens with: Palpation Associated Symptoms: Denies other symptoms - Related Data Home Medications Medication Instructions Recorded Confirmed Last Taken Estradiol 2 mg PO DAILY 12/11/17 12/11/17 12/11/17 Allergies Allergy/AdvReac Type Severity Reaction Status Date / Time venlafaxine [From Effexor] AdvReac elevated HR Verified 12/11/17 08:00 Review of Systems Constitutional: Denies: Chills, Fever, Malaise, Weakness Eyes: Denies: Eye discharge ENT: Denies: Congestion, Throat pain Respiratory: Denies: Cough, Dyspnea, Hemoptysis, Wheezes Cardiovascular: Denies: Chest pain, Palpitations, Syncope Endocrine: Denies: Fatigue Gastrointestinal: Denies: Abdominal pain, Diarrhea, Nausea, Vomiting Genitourinary: Denies: Dysuria Musculoskeletal: Reports: Myalgia. Denies: Arthralgia, Back pain, Joint swelling Skin: Denies: Bruising, Change in color, Rash Neurological: Denies: Headache, Numbness, Weakness Psychiatric: Denies: Anxiety Hematological/Lymphatic: Denies: Blood Clots, Easy bleeding, Easy bruising, Swollen glands Past Medical History - SOCIAL HISTORY Smoking Status: Former smoker Drug Use: None - RESPIRATORY Hx Respiratory Disorders: Yes Hx Pneumonia: Yes - CARDIOVASCULAR Hx Cardio Disorders: Yes Hx Hypertension: Yes Hx Irregular Heartbeat: Yes (currently being evaluated) Comment:: inappropriate tachycardia - NEURO Hx Neuro Disorders: No - GI Hx GI Disorders: No - Hx Genitourinary Disorders: No - ENDOCRINE Hx Endocrine Disorders: No - MUSCULOSKELETAL Hx Musculoskeletal Disorders: No - PSYCH Hx Psych Problems: Yes Hx Anxiety: Yes Hx Depression: Yes - HEMATOLOGY/ONCOLOGY Hx Hematology/Oncology Disorders: No Family Medical History Family Hx Comment (NOT TO BE USED IN PLACE OF ITEMS BELOW): mom w/ MS Hx Cancer: Grandparents Hx Diabetes: Father Physical Exam - General General Appearance: Alert, Oriented x3, Cooperative, No acute distress Limitations: No limitations - Head Head exam: Atraumatic, Normal inspection - Eye Eye exam: Normal appearance. negative: Conjunctival injection - ENT ENT exam: Normal exam Ear exam: Normal external inspection Nasal Exam: Normal inspection Mouth exam: Normal external inspection - Neck Neck exam: Normal inspection - Respiratory Respiratory exam: Normal lung sounds bilaterally. negative: Respiratory distress, Rhonchi, Stridor, Wheezes - Cardiovascular Cardiovascular Exam: Tachycardia (HR 112 but regular) Peripheral Pulses: 2+: Radial (R) - Rectal Rectal exam: Deferred - exam: Deferred - Extremities Extremities exam: Full ROM, Normal capillary refill, Tenderness, Other (No definite swelling, tender forearm, no redness, no palpable cord or mass). negative: Joint swelling - Neurological Neurological exam: Alert, Oriented X3 - Psychiatric Psychiatric exam: Normal affect, Normal mood - Skin Skin exam: Dry, Intact, Normal color, Warm Course - Reevaluation(s) Reevaluation #1: I informed the patient there is no doppler available on weekends I called [facility]. Dr Wyman accepts the patient for transfer The patient new feels and weak now and she is not comfortable driving herself EMS will be contacted HR is 112 so EMS contacted 12/11/17 08:10 12/11/17 08:47 The patient is now anxious and tearful. She requests medication to help calm her. Waiting for EMS transfer Disposition Disposition: Discharge Clinical Impression: Anxiety Arm pain Qualifiers: Laterality: right Qualified Code(s): M79.601 - Pain in right arm Disposition: Home, Self-Care Transfer To: [facility] Reason For Transfer: No doppler at [facility] Accepting Physician: Garo Time Discussed w/Accepting Physician: 08:07 Condition: (1) Good Forms: Patient Portal Access Time of Disposition: 08:07 Quality - Quality Measures Quality Measures: N/A - Blood Pressure Screening Does Patient Have Any of the Following: No Blood Pressure Classification: Pre-Hypertensive BP Reading Systolic Measurement: 144 Diastolic Measurement: 89 Screening for High Blood Pressure: < Pre-Hypertensive BP, F/U Documented > [ G8950] Pre-Hypertensive Follow-up Interventions: Referral to alternative/primary care provider.
[2017-12-11] MEDS ORDERED: SODIUM CHLORIDE 0.9% 500 ML IV ONE (08:11)
[2017-12-11] MEDS ORDERED: LORAZEPAM 2 MG/ML VIAL IV ONE (08:46)
== END 2017-12-11 10:25 | disposition home or self-care (01) ==
LOC: ER 07:51
DX: M79.631 Pain in right forearm (principal); R00.0 Tachycardia, unspecified; R53.1 Weakness; F41.9 Anxiety disorder, unspecified; I10 Essential (primary) hypertension; Z87.891 Personal history of nicotine dependence
CPT/HCPCS: 99285 ×2; 96374; J2060

== ENCOUNTER 2018-03-15 04:06 | Emergency (ER) | payer BC ==
--- NOTE | 2018-03-15 04:12 | Emergency Department Record ---
History of Present Illness - General Chief Complaint: Palpitations Stated Complaint: PALPITATIONS Time Seen by Provider: 03/15/18 04:11 Source: Patient - History of Present Illness Initial Comments: The patient states that around 9 p.m last evening while in bed she developed a racing heart and chest pressure beneath her left breast. This pressure does not radiate and is not associated with nausea, or diaphoresis. She states her face feels hot. She has had bilateral leg swelling for 3-4 weeks so her PCP gave her 20 mg lasix daily for the past 2 weeks. She denies DVT,PE, UT, CVA. She is a nonsmoker, No DM, +FH of CABG in her grandmother. She has a history of htn, and anxiety. MD Complaint: "Heart racing" - Related Data Home Medications Medication Instructions Recorded Confirmed Last Taken Furosemide [Lasix] 20 mg PO DAILY 03/15/18 03/15/18 Unknown Allergies Allergy/AdvReac Type Severity Reaction Status Date / Time venlafaxine [From Effexor] AdvReac elevated HR Verified 12/11/17 08:00 Review of Systems Reviewed: No additional complaints except as noted below Constitutional: Reports: As per HPI. Denies: Chills, Fever, Malaise, Night sweats, Weakness, Weight change Eyes: Reports: As per HPI. Denies: Eye discharge, Eye pain, Photophobia, Vision change ENT: Reports: As per HPI. Denies: Congestion, Dental pain, Ear pain, Epistaxis , Hearing loss, Throat pain Respiratory: Reports: As per HPI. Denies: Cough, Dyspnea, Hemoptysis, Stridor, Wheezes Cardiovascular: Reports: As per HPI. Denies: Arrhythmia, Chest pain, Dyspnea on exertion, Edema, Murmurs, Orthopnea, Palpitations, Paroxysmal nocturnal dyspnea, Rheumatic Fever, Syncope Endocrine: Reports: As per HPI. Denies: Fatigue, Heat or cold intolerance, Polydipsia, Polyuria Gastrointestinal: Reports: As per HPI. Denies: Abdominal pain, Constipation, Diarrhea, Hematemesis, Hematochezia, Melena, Nausea, Vomiting Genitourinary: Reports: As per HPI. Denies: Abnormal menses, Discharge, Dyspareunia, Dysuria, Frequency, Hematuria, Incontinence, Retention, Urgency Musculoskeletal: Reports: As per HPI. Denies: Arthralgia, Back pain, Gout, Joint swelling, Myalgia, Neck pain Skin: Reports: As per HPI. Denies: Bruising, Change in color, Change in hair/ nails, Lesions, Pruritus, Rash Neurological: Reports: As per HPI. Denies: Abnormal gait, Confusion, Headache, Numbness, Paresthesias, Seizure, Tingling, Tremors, Vertigo, Weakness Psychiatric: Reports: As per HPI. Denies: Anxiety, Auditory hallucinations, Depression, Homicidal thoughts, Suicidal thoughts, Visual hallucinations Hematological/Lymphatic: Reports: As per HPI. Denies: Anemia, Blood Clots, Easy bleeding, Easy bruising, Swollen glands Past Medical History - SOCIAL HISTORY Smoking Status: Former smoker Drug Use: None - RESPIRATORY Hx Respiratory Disorders: Yes Hx Pneumonia: Yes - CARDIOVASCULAR Hx Cardio Disorders: Yes Hx Hypertension: Yes Hx Irregular Heartbeat: Yes (currently being evaluated) Comment:: inappropriate tachycardia - NEURO Hx Neuro Disorders: No - GI Hx GI Disorders: No - Hx Genitourinary Disorders: No - ENDOCRINE Hx Endocrine Disorders: No - MUSCULOSKELETAL Hx Musculoskeletal Disorders: No - PSYCH Hx Psych Problems: Yes Hx Anxiety: Yes Hx Depression: Yes - HEMATOLOGY/ONCOLOGY Hx Hematology/Oncology Disorders: No Family Medical History Family Hx Comment (NOT TO BE USED IN PLACE OF ITEMS BELOW): mom w/ MS Hx Cancer: Grandparents Hx Diabetes: Father Physical Exam - General General Appearance: Alert, Oriented x3, Cooperative, Mild distress (very anxious , muscles tightening, squeezing fists on and off, poor eye contact, keeps eyes squinted closed.) - Head Head exam: Normal inspection - Eye Eye exam: Normal appearance, PERRL, EOMI. negative: Conjunctival injection, Nystagmus Pupils: Normal accommodation - ENT ENT exam: Normal exam, Mucous membranes moist, Normal external ear exam, Normal orophraynx, TM's normal bilaterally Ear exam: Normal external inspection. negative: External canal tenderness Nasal Exam: Normal inspection. negative: Discharge, Sinus tenderness Mouth exam: Normal external inspection, Tongue normal Teeth exam: Normal inspection. negative: Dental caries Throat exam: Normal inspection. negative: Tonsillar erythema, Tonsillar exudate - Neck Neck exam: Normal inspection, Full ROM. negative: Lymphadenopathy, Meningismus , Tenderness - Respiratory Respiratory exam: Normal lung sounds bilaterally, Other (left breast nontender.) . negative: Chest wall tenderness, Respiratory distress - Cardiovascular Cardiovascular Exam: Normal rhythm, Normal heart sounds, Tachycardia - GI/Abdominal GI/Abdominal exam: Soft, Normal bowel sounds. negative: Tenderness - Rectal Rectal exam: Deferred - exam: Deferred - Extremities Extremities exam: Normal inspection, Full ROM, Normal capillary refill, Pedal edema (bilateral 1+ symmetric edema, no calf tenderness). negative: Calf tenderness, Tenderness - Back Back exam: Reports: Normal inspection, Full ROM. Denies: CVA tenderness (R), CVA tenderness (L), Muscle spasm, Rash noted, Tenderness - Neurological Neurological exam: Alert, CN II-XII intact, Normal gait, Oriented X3, Reflexes normal - Psychiatric Psychiatric exam: Normal affect, Normal mood - Skin Skin exam: Dry, Intact, Normal color, Warm Course Vital Signs 03/15/18 04:10 Temperature 98.4 F Pulse Rate [ 122 H Pulse Ox Probe] Respiratory 20 Rate Blood Pressure 161/89 [Left Arm] Pulse Ox 99 - Reevaluation(s) Reevaluation #1: Patient has improved but some anxiety and "tenseness" remains. Pulse now 74 on monitor. 03/15/18 04:57 Reevaluation #2: Patient is feeling much better, sleepy and ready to go home to bed. She will follow with her Clinical Laboratory Technologist as an out patient for further work up. 03/15/18 05:58 Reevaluation #3: Repeat troponin unchanged at <0,01. Will DC home with out patient cardiac follow up with her certified technician. 03/15/18 06:49 Medical Decision Making - Management Options MDM Management: No Additional Work-up Planned - Data Complexity MDM Data: Labs Ordered and/or Reviewed, X-Ray Ordered and/or Reviewed (CXR preliminary read as negative.), EKG Ordered and/or Reviewed - Lab Data Result diagrams: 03/15/18 04:23 03/15/18 04:23 - EKG Data -: EKG Interpreted by Me EKG: No Acute Changes, Unchanged From Previous ([address]-T changes anterior and lateral leads as seen on 18 old EKG.) Disposition Disposition: Discharge Clinical Impression: Anxiety attack Disposition: Home, Self-Care Condition: (1) Good Instructions: Heart Palpitations (ED), Generalized Anxiety Disorder (ED) Additional Instructions: Home rest. Continue present medications. Follow up with Clinical Laboratory Technologist Dr Alvarez in office for out patient cardiac work up and recheck. Forms: Patient Portal Access Quality - Quality Measures Quality Measures: N/A - Blood Pressure Screening Does Patient Have Any of the Following: No Blood Pressure Classification: Pre-Hypertensive BP Reading Systolic Measurement: 113 Diastolic Measurement: 83 Screening for High Blood Pressure: Patient Exclusion, Hx of HTN [G9614]
[2018-03-15] MEDS ORDERED: ASPIRIN 325 MG TABLET PO ONE (04:27)
[2018-03-15] MEDS ORDERED: ASPIRIN 325 MG TAB ENTERIC-COATED PO ONE (04:28)
[2018-03-15] MEDS ORDERED: LORAZEPAM 2 MG/ML VIAL IV ONE (04:29)
[2018-03-15] MEDS ORDERED: ASPIRIN 81 MG CHEWABLE TABLET PO ONE (04:32)
[2018-03-15 04:39] LABS: BASO % 0.2 % (0-6); EOS % 0.4 % (0-6); GRAN % 51.1 % (47-80); HEMATOCRIT 39.5 % (35.0-47.0); HEMOGLOBIN 12.9 gm/dl (11.6-16.0); LYMPH % 36.7 % (16-45); MEAN CELL VOLUME 84.9 fl (81-97); MEAN CORPUSCULAR HEMOGLOBIN 27.7 pg (27-33); MEAN CORPUSCULAR HGB CONC 32.7 g/dl (32-36); MEAN PLATELET VOLUME 11.5 fl (7.4-10.4); MONO % 11.6 % (0-9); PLATELET COUNT 260 K/uL (130-400); RED BLOOD COUNT 4.65 M/uL (3.80-5.40); RED CELL DISTRIBUTION WIDTH 12.9 % (11.5-14.5); WHITE BLOOD COUNT W/O DIFF 9.4 K/uL (4.2-12.2)
[2018-03-15 04:46] LABS: BLOOD UREA NITROGEN 20 mg/dL (6-20); CREATININE 0.8 mg/dL (0.5-0.9); EST GLOMERULAR FILTRATION RATE > 60 mL/min
[2018-03-15 04:49] LABS: GLUCOSE,RANDOM 109 mg/dL (74-109)
[2018-03-15 04:51] LABS: ALT/SGPT 19 U/L (<33); AST/SGOT 20 U/L (10.0-35.0)
[2018-03-15 04:52] LABS: ALB/GLOB RATIO 1.2 (1.1-1.8); ALBUMIN 4.4 g/dL (4.0-5.0); ALKALINE PHOSPHATASE 94 U/L (35-104)
[2018-03-15 04:54] LABS: PARTIAL THROMBOPLASTIN TIME 26.7 SECONDS (24.5-39.1); PROTHROMBIN TIME (PATIENT) 9.9 SECONDS (9.5-12.1)
[2018-03-15 05:03] LABS: THYROID STIMULATING HORMONE 3.72 uIU/mL (0.270-4.20)
--- NOTE | 2018-03-16 09:07 | RADIOLOGY REPORT ---
EXAM: CHEST, TWO VIEWS HISTORY: HYPERTENSION, PALPITATIONS AND CHEST PAIN. TECHNIQUE: Two views of the chest were obtained. Comparison: 06/05/16. FINDINGS: The cardiomediastinal silhouette is unremarkable. The lungs and pleural spaces are clear. IMPRESSION: NO ACUTE CARDIOPULMONARY ABNORMALITY. JOB NUMBER: [id number] MTDD
== END 2018-03-15 07:04 | disposition home or self-care (01) ==
LOC: ER 04:06
DX: R41.0 Disorientation, unspecified (principal); R07.89 Other chest pain; R00.2 Palpitations; R60.0 Localized edema; I10 Essential (primary) hypertension; Z87.891 Personal history of nicotine dependence
CPT/HCPCS: 71046; 80053; 83880; 84443; 84484; 85025; 85379; 85610; 85730; 93005; 93010; 96374; 99284

== ENCOUNTER 2018-04-08 06:23 | Emergency (ER) | payer BC ==
[2018-04-08] MEDS ORDERED: LORAZEPAM 2 MG/ML VIAL IV ONE (06:44)
[2018-04-08 06:56] LABS: BASO % 0.3 % (0-6); EOS % 1.7 % (0-6); GRAN % 40.5 % (47-80); HEMATOCRIT 39.3 % (35.0-47.0); HEMOGLOBIN 12.4 gm/dl (11.6-16.0); LYMPH % 44.4 % (16-45); MEAN CELL VOLUME 86.6 fl (81-97); MEAN CORPUSCULAR HEMOGLOBIN 27.3 pg (27-33); MEAN CORPUSCULAR HGB CONC 31.6 g/dl (32-36); MONO % 13.1 % (0-9); PLATELET COUNT 286 K/uL (130-400); RED BLOOD COUNT 4.54 M/uL (3.80-5.40); RED CELL DISTRIBUTION WIDTH 13.6 % (11.5-14.5); WHITE BLOOD COUNT W/O DIFF 7.7 K/uL (4.2-12.2)
--- NOTE | 2018-04-08 07:05 | Emergency Department Record ---
History of Present Illness - General Chief Complaint: Chest Pain Stated Complaint: PRESSURE ON CHEST Time Seen by Provider: 04/08/18 06:36 Source: Patient Mode of Arrival: Ambulatory Limitations: No limitations - History of Present Illness Initial Comments: The patient is here due to a 12 hour hx of intermittent dizziness and palpitations. She also is feeling anxious and shaky. The patient has a long hx of anxiety which presents exactly like this. She has recently began using CBD oil and thinks that could be causing her symptoms. The patient denies any CP, SOB, or MARISA but is having mild chest pressure with the palpitations which is typical for her anxiety. MD Complaint: Other Onset/Timin -: Hour(s) Onset: During rest Pain Location: Left chest Severity: Mild Severity scale (1-10): 4 Quality: Tightness, Other Consistency: Intermittent Improves With: Nothing Worsens With: Other Context: New medications, Other Treatments Prior to Arrival: None - Related Data Allergies Allergy/AdvReac Type Severity Reaction Status Date / Time venlafaxine [From Effexor] AdvReac elevated HR Verified 04/08/18 06:28 Travel Screening - Travel/Exposure Within Last 30 Days Have you traveled within the last 30 days?: No - Travel Symptoms Symptom Screening: None Review of Systems Constitutional: Denies: Chills, Fever Eyes: Denies: Eye discharge ENT: Denies: Congestion Respiratory: Denies: Cough, Dyspnea Cardiovascular: Reports: Arrhythmia. Denies: Chest pain Endocrine: Denies: Fatigue Gastrointestinal: Denies: Nausea Genitourinary: Denies: Dysuria Musculoskeletal: Denies: Arthralgia Neurological: Denies: Abnormal gait Psychiatric: Reports: Anxiety Past Medical History - SOCIAL HISTORY Smoking Status: Former smoker Alcohol Use: None Drug Use Detail:: Marijuana - RESPIRATORY Hx Respiratory Disorders: Yes Hx Pneumonia: Yes - CARDIOVASCULAR Hx Cardio Disorders: Yes Hx Hypertension: Yes Hx Irregular Heartbeat: Yes (currently being evaluated) Comment:: inappropriate tachycardia - NEURO Hx Neuro Disorders: No - GI Hx GI Disorders: No - Hx Genitourinary Disorders: No - ENDOCRINE Hx Endocrine Disorders: No - MUSCULOSKELETAL Hx Musculoskeletal Disorders: No - PSYCH Hx Psych Problems: Yes Hx Anxiety: Yes Hx Depression: Yes - HEMATOLOGY/ONCOLOGY Hx Hematology/Oncology Disorders: No Family Medical History Any Significant Family History?: Yes Family Hx Comment (NOT TO BE USED IN PLACE OF ITEMS BELOW): mom w/ MS Hx Cancer: Grandparents Hx Diabetes: Father Physical Exam - General General Appearance: Alert, Oriented x3, Cooperative, No acute distress - Head Head exam: Atraumatic, Normocephalic, Normal inspection - Eye Eye exam: Normal appearance, PERRL, EOMI - ENT Throat exam: Normal inspection. negative: Tonsillar erythema, Tonsillar exudate - Neck Neck exam: Normal inspection, Full ROM. negative: Tenderness - Respiratory Respiratory exam: Normal lung sounds bilaterally. negative: Respiratory distress - Cardiovascular Cardiovascular Exam: Regular rate, Normal rhythm, Normal heart sounds. negative : Diastolic murmur, Systolic murmur - GI/Abdominal GI/Abdominal exam: Soft, Normal bowel sounds. negative: Tenderness - Extremities Extremities exam: Normal inspection, Full ROM, Normal capillary refill. negative: Tenderness - Neurological Neurological exam: Alert, Normal gait. negative: Abnormal gait, Motor sensory deficit - Psychiatric Psychiatric exam: Anxious Course Vital Signs 04/08/18 06:29 Temperature 98.7 F Pulse Rate 110 H Respiratory 26 H Rate Blood Pressure 140/86 Pulse Ox 98 - Reevaluation(s) Reevaluation #1: The patient is doing a lot better at this time. She is no longer anxious and her symptoms have all resolved with the Ativan. She is ready for home. 04/08/18 07:33 Medical Decision Making - Data Complexity MDM Data: Labs Ordered and/or Reviewed, EKG Ordered and/or Reviewed - Lab Data Result diagrams: 04/08/18 06:37 04/08/18 06:37 Lab Results 04/08/18 Range/Units 06:37 WBC 7.7 (4.2-12.2) K/uL RBC 4.54 (3.80-5.40) M/uL Hgb 12.4 (11.6-16.0) gm/dl Hct 39.3 (35.0-47.0) % MCV 86.6 (81-97) fl MCH 27.3 (27-33) pg MCHC 31.6 L (32-36) g/dl RDW 13.6 (11.5-14.5) % Plt Count 286 (130-400) K/uL MPV 11.0 H (7.4-10.4) fl Gran % 40.5 L (47-80) % Lymphocytes % 44.4 (16-45) % Monocytes % 13.1 H (0-9) % Eosinophils % 1.7 (0-6) % Basophils % 0.3 (0-6) % - EKG Data -: EKG Interpreted by Me EKG: No Acute Changes, Unchanged From Previous Disposition Disposition: Discharge Clinical Impression: Anxiety attack Disposition: Home, Self-Care Condition: (2) Stable Instructions: Anxiety (ED) Additional Instructions: Please continue your regular medicines and see your family doctor next week for recheck. Return to the ER for any worsening symptoms. Forms: Patient Portal Access Time of Disposition: 07:35 Quality - Quality Measures Quality Measures: N/A - Blood Pressure Screening View Details: Yes Does Patient Have Any of the Following: No Blood Pressure Classification: Pre-Hypertensive BP Reading Systolic Measurement: 140 Diastolic Measurement: 86 Screening for High Blood Pressure: < Pre-Hypertensive BP, F/U Documented > [ G8950] Pre-Hypertensive Follow-up Interventions: Referral to alternative/primary care provider.
[2018-04-08 07:10] LABS: BLOOD UREA NITROGEN 16 mg/dL (6-20); CREATININE 0.7 mg/dL (0.5-0.9); EST GLOMERULAR FILTRATION RATE > 60 mL/min
[2018-04-08 07:11] LABS: TOTAL PROTEIN 7.7 g/dL (6.6-8.7)
[2018-04-08 07:13] LABS: GLUCOSE,RANDOM 113 mg/dL (74-109)
[2018-04-08 07:15] LABS: ALT/SGPT 23 U/L (<33)
[2018-04-08 07:16] LABS: ALB/GLOB RATIO 1.2 (1.1-1.8); ALBUMIN 4.2 g/dL (4.0-5.0); ALKALINE PHOSPHATASE 95 U/L (45-87); AST/SGOT 27 U/L (10.0-35.0)
[2018-04-08 07:27] LABS: THYROID STIMULATING HORMONE 3.17 uIU/mL (0.270-4.20)
== END 2018-04-08 07:44 | disposition home or self-care (01) ==
LOC: ER 06:23
DX: F41.0 Panic disorder [episodic paroxysmal anxiety] (principal); R07.89 Other chest pain; R42 Dizziness and giddiness; I10 Essential (primary) hypertension; Z87.891 Personal history of nicotine dependence
CPT/HCPCS: 80053; 84443; 84484; 85025; 93005; 93010; 96374; 99284

== ENCOUNTER 2018-05-23 09:04 | Emergency (ER) | payer BC ==
[2018-05-23] MEDS ORDERED: ONDANSETRON HCL IV 4 MG/2 ML VIAL IVP ONE ×2 (09:28→11:17)
[2018-05-23] MEDS ORDERED: 0.9 % SODIUM CHLORIDE 1,000 ML BAG IV ONE ×2 (09:28→11:17)
--- NOTE | 2018-05-23 09:31 | Emergency Department Record ---
History of Present Illness - General Chief Complaint: Abdominal Pain Stated Complaint: ABD PAIN N/V Time Seen by Provider: 05/23/18 09:24 Source: Patient Mode of Arrival: Ambulatory Limitations: No limitations - History of Present Illness Initial Comments: 43 yo female presents with nausea and vomiting that started around 2 AM. No fevers. No chills. No diarrhea but she is having a gassy gurgling feeling. No significant pain but she has some cramps. No cough or congestion. No dysuria. She has had prior gall bladder surgery and hysterectomy. MD Complaint: Other (Nausea and Vomiting) -: Hour(s) (7) Location: Other (Mild cramps) Radiation: Other Migration to: Other Severity: Moderate Quality: Cramping Consistency: Constant Improves With: Nothing Worsens With: Eating Context: Other Associated Symptoms: Anorexia - Related Data Previous Rx's Medication Instructions Recorded Ondansetron [Zofran Odt] 4 mg PO Q8H #15 tab.rapdis 05/23/18 Allergies Allergy/AdvReac Type Severity Reaction Status Date / Time venlafaxine [From Effexor] AdvReac elevated HR Verified 05/23/18 10:09 Review of Systems Constitutional: Reports: Malaise, Weakness. Denies: Chills, Fever Eyes: Denies: Eye discharge ENT: Denies: Congestion, Throat pain Respiratory: Denies: Cough, Dyspnea, Hemoptysis, Stridor, Wheezes Cardiovascular: Denies: Chest pain, Palpitations, Syncope Endocrine: Reports: Fatigue Gastrointestinal: Reports: Nausea, Vomiting. Denies: Abdominal pain, Constipation, Diarrhea, Hematemesis, Hematochezia, Melena Genitourinary: Denies: Dysuria, Urgency Musculoskeletal: Denies: Arthralgia, Back pain, Joint swelling, Myalgia Skin: Denies: Bruising, Change in color, Rash Neurological: Denies: Confusion, Headache Psychiatric: Denies: Anxiety Hematological/Lymphatic: Denies: Blood Clots, Easy bleeding, Easy bruising Past Medical History - SOCIAL HISTORY Smoking Status: Former smoker Drug Use Detail:: Marijuana - RESPIRATORY Hx Respiratory Disorders: Yes Hx Pneumonia: Yes - CARDIOVASCULAR Hx Cardio Disorders: Yes Hx Hypertension: Yes Hx Irregular Heartbeat: Yes (currently being evaluated) Comment:: inappropriate tachycardia - NEURO Hx Neuro Disorders: No - GI Hx GI Disorders: No - Hx Genitourinary Disorders: No - ENDOCRINE Hx Endocrine Disorders: No - MUSCULOSKELETAL Hx Musculoskeletal Disorders: No - PSYCH Hx Psych Problems: Yes Hx Anxiety: Yes Hx Depression: Yes - HEMATOLOGY/ONCOLOGY Hx Hematology/Oncology Disorders: No Family Medical History Family Hx Comment (NOT TO BE USED IN PLACE OF ITEMS BELOW): mom w/ MS Hx Cancer: Grandparents Hx Diabetes: Father Physical Exam - General General Appearance: Alert, Oriented x3, Cooperative, No acute distress Limitations: No limitations - Head Head exam: Atraumatic - Eye Eye exam: Normal appearance. negative: Conjunctival injection, Scleral icterus - ENT ENT exam: Normal exam, Mucous membranes moist Ear exam: Normal external inspection Nasal Exam: Normal inspection Mouth exam: Normal external inspection Teeth exam: Normal inspection Throat exam: Normal inspection - Neck Neck exam: Normal inspection - Respiratory Respiratory exam: Normal lung sounds bilaterally. negative: Respiratory distress, Rhonchi, Stridor, Wheezes - Cardiovascular Cardiovascular Exam: Regular rate, Normal rhythm, Normal heart sounds - GI/Abdominal GI/Abdominal exam: Soft. negative: Distended, Guarding, Rebound, Rigid, Tenderness - Rectal Rectal exam: Deferred - exam: Deferred - Extremities Extremities exam: Normal inspection - Back Back exam: Denies: CVA tenderness (R), CVA tenderness (L) - Neurological Neurological exam: Alert, Oriented X3 - Psychiatric Psychiatric exam: Normal affect, Normal mood - Skin Skin exam: Dry, Intact, Normal color, Warm Course - Reevaluation(s) Reevaluation #1: 05/23/18 10:10 The CBC and CMP are negative for acute abnormality 05/23/18 12:41 UA is negative. spec gravity 1.010. no ketones No vomiting or diarrhea in the ED Waiting for 2nd liter to complete Medical Decision Making - Lab Data Result diagrams: 05/23/18 08:45 05/23/18 08:45 Disposition Disposition: Discharge Clinical Impression: Vomiting Disposition: Home, Self-Care Condition: (1) Good Instructions: Acute Nausea and Vomiting (ED) Additional Instructions: Call your doctor for the next available follow up appointment Return to the ER for a recheck if worse, any new concerns or questions Take the prescriptions provided as directed Review this ER visit and the tests performed with your family doctor Prescriptions: Ondansetron [Zofran Odt] 4 mg PO Q8H #15 tab.rapdis Forms: Patient Portal Access Time of Disposition: 12:41 Quality - Quality Measures Quality Measures: N/A - Blood Pressure Screening Does Patient Have Any of the Following: No Blood Pressure Classification: Normal BP Reading Systolic Measurement: 107 Diastolic Measurement: 72 Screening for High Blood Pressure: < Normal BP, F/U Not Required > [G8783]
[2018-05-23 09:51] LABS: BASO % 0.2 % (0-6); GRAN % 50.9 % (47-80); HEMATOCRIT 39.1 % (35.0-47.0); HEMOGLOBIN 12.8 gm/dl (11.6-16.0); MEAN CELL VOLUME 86.1 fl (81-97); MEAN CORPUSCULAR HEMOGLOBIN 28.2 pg (27-33); MEAN CORPUSCULAR HGB CONC 32.7 g/dl (32-36); MEAN PLATELET VOLUME 11.3 fl (7.4-10.4); MONO % 8.9 % (0-9); PLATELET COUNT 251 K/uL (130-400); RED BLOOD COUNT 4.54 M/uL (3.80-5.40); RED CELL DISTRIBUTION WIDTH 13.5 % (11.5-14.5); WHITE BLOOD COUNT W/O DIFF 6.2 K/uL (4.2-12.2)
[2018-05-23 10:02] LABS: BLOOD UREA NITROGEN 20 mg/dL (6-20); CREATININE 0.7 mg/dL (0.5-0.9); EST GLOMERULAR FILTRATION RATE > 60 mL/min
[2018-05-23 10:03] LABS: LIPASE 17 U/L (13-60); TOTAL PROTEIN 7.6 g/dL (6.6-8.7)
[2018-05-23 10:05] LABS: GLUCOSE,RANDOM 105 mg/dL (74-109)
[2018-05-23 10:07] LABS: ALB/GLOB RATIO 1.2 (1.1-1.8); ALBUMIN 4.2 g/dL (4.0-5.0); ALKALINE PHOSPHATASE 92 U/L (35-104); ALT/SGPT 16 U/L (<33); AST/SGOT 20 U/L (10.0-35.0)
[2018-05-23 11:43] LABS: URINE APPEARANCE CLEAR; URINE BILIRUBIN NEGATIVE (NEGATIVE); URINE BLOOD NEGATIVE (NEGATIVE); URINE COLOR YELLOW; URINE GLUCOSE (UA) NEGATIVE (NEGATIVE); URINE KETONE NEGATIVE (NEGATIVE); URINE LEUKOCYTE ESTERASE NEGATIVE (NEGATIVE); URINE NITRITE NEGATIVE (NEGATIVE); URINE PROTEIN NEGATIVE (NEGATIVE); URINE UROBILINOGEN 0.2 E.U./dL (0.20 - 1.00)
== END 2018-05-23 13:03 | disposition home or self-care (01) ==
LOC: ER 09:04
DX: R11.2 Nausea with vomiting, unspecified (principal); R10.9 Unspecified abdominal pain; I10 Essential (primary) hypertension; Z87.891 Personal history of nicotine dependence
CPT/HCPCS: 80053; 81003; 83690; 85025; 96374; 96376; 99284; J2405; J7030

== ENCOUNTER 2018-06-07 05:44 | Emergency (ER) | payer BC ==
--- NOTE | 2018-06-07 05:48 | Emergency Department Record ---
History of Present Illness - General Stated Complaint: MIGRAINE Time Seen by Provider: 06/07/18 05:46 Source: Patient Mode of Arrival: Ambulatory Limitations: No limitations - History of Present Illness Initial Comments: 43 yo female presents with a headache since yesterday afternoon. The onset was gradual. Not sudden onset or maximal at onset. The location is frontal and both temples. She had recent changes in her Cardizem dosing and was concerned the headache is related. No nausea, vomiting, double vision, speech changes, hearing changes, dizziness, coordination changes. She has a history of migraines. The headache is a dull pressure sensation. No other changes in her health recently. MD Complaint: Headache, "Migraine" -: Days(s) (1) Location: Frontal, Temporal Severity: Moderate Quality: Aching Consistency: Constant Improves With: Nothing Worsens With: None Context: New medication Associated Symptoms: Other Treatments Prior to Arrival: None - Related Data Allergies Allergy/AdvReac Type Severity Reaction Status Date / Time venlafaxine [From Effexor] AdvReac elevated HR Verified 05/23/18 10:09 Review of Systems Constitutional: Denies: Chills, Fever, Malaise, Weakness Eyes: Denies: Eye discharge, Eye pain, Photophobia, Vision change ENT: Denies: Congestion, Throat pain Respiratory: Denies: Cough, Dyspnea Cardiovascular: Denies: Chest pain, Syncope Endocrine: Denies: Fatigue Gastrointestinal: Denies: Diarrhea, Nausea, Vomiting Genitourinary: Denies: Dysuria Musculoskeletal: Denies: Arthralgia, Back pain, Myalgia Skin: Denies: Bruising, Change in color, Rash Neurological: Reports: As per HPI, Headache. Denies: Abnormal gait, Confusion, Numbness, Paresthesias, Seizure, Tingling, Tremors, Vertigo, Weakness Psychiatric: Denies: Anxiety Hematological/Lymphatic: Denies: Easy bleeding, Easy bruising Past Medical History - SOCIAL HISTORY Smoking Status: Former smoker Drug Use Detail:: Marijuana - RESPIRATORY Hx Respiratory Disorders: Yes Hx Pneumonia: Yes - CARDIOVASCULAR Hx Cardio Disorders: Yes Hx Hypertension: Yes Hx Irregular Heartbeat: Yes (currently being evaluated) Comment:: inappropriate tachycardia - NEURO Hx Neuro Disorders: No - GI Hx GI Disorders: No - Hx Genitourinary Disorders: No - ENDOCRINE Hx Endocrine Disorders: No - MUSCULOSKELETAL Hx Musculoskeletal Disorders: No - PSYCH Hx Psych Problems: Yes Hx Anxiety: Yes Hx Depression: Yes - HEMATOLOGY/ONCOLOGY Hx Hematology/Oncology Disorders: No Family Medical History Family Hx Comment (NOT TO BE USED IN PLACE OF ITEMS BELOW): mom w/ MS Hx Cancer: Grandparents Hx Diabetes: Father Physical Exam - General General Appearance: Alert, Oriented x3, Cooperative, No acute distress, Other ( Well appearing, NAD) Limitations: No limitations - Head Head exam: Atraumatic, Normal inspection - Eye Eye exam: Normal appearance, PERRL, EOMI. negative: Conjunctival injection, Nystagmus, Periorbital swelling - ENT ENT exam: Normal exam, Mucous membranes moist, Normal orophraynx Ear exam: Normal external inspection Nasal Exam: Normal inspection Mouth exam: Normal external inspection - Neck Neck exam: Normal inspection - Respiratory Respiratory exam: Normal lung sounds bilaterally. negative: Respiratory distress - Cardiovascular Cardiovascular Exam: Regular rate, Normal rhythm, Normal heart sounds - GI/Abdominal GI/Abdominal exam: negative: Soft, Tenderness - Rectal Rectal exam: Deferred - exam: Deferred - Extremities Extremities exam: Normal inspection. negative: Tenderness - Back Back exam: Denies: CVA tenderness (R), CVA tenderness (L) - Neurological Neurological exam: Alert, CN II-XII intact, Normal gait, Oriented X3, Reflexes normal. negative: Abnormal gait, Altered, Motor sensory deficit - Psychiatric Psychiatric exam: Normal affect, Normal mood. negative: Agitated, Anxious - Skin Skin exam: Dry, Intact, Normal color, Warm Course - Reevaluation(s) Reevaluation #1: 06/07/18 06:33 The labs were reviewed No acute changes on the CBC or BMP 06/07/18 06:37 The patient states she is doing better and is ready to go home. 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 Medical Decision Making - Lab Data Result diagrams: 06/07/18 06:02 06/07/18 06:02 Disposition Disposition: Discharge Clinical Impression: Headache Disposition: Home, Self-Care Condition: (1) Good Instructions: Acute Headache (ED) Additional Instructions: Off work today Rest and stay hydrated You may take Tylenol as need as well Return for a recheck if not improved, and fever, new symptoms or concerns Follow up with your family doctor to review this ER visit as well. Time of Disposition: 06:38 Quality - Quality Measures Quality Measures: N/A - Blood Pressure Screening Does Patient Have Any of the Following: Active Dx of HTN Blood Pressure Classification: Pre-Hypertensive BP Reading Systolic Measurement: 122 Diastolic Measurement: 88 Screening for High Blood Pressure: Patient Exclusion, Hx of HTN [G9744] Pre-Hypertensive Follow-up Interventions: Referral to alternative/primary care provider.
[2018-06-07] MEDS ORDERED: 0.9 % SODIUM CHLORIDE 1,000 ML BAG IV ONE (05:54)
[2018-06-07] MEDS ORDERED: KETOROLAC 30 MG/ML VIAL IVP ONE (05:54)
[2018-06-07 06:10] LABS: HEMATOCRIT 39.8 % (35.0-47.0); HEMOGLOBIN 12.9 gm/dl (11.6-16.0); MEAN CELL VOLUME 85.6 fl (81-97); MEAN CORPUSCULAR HEMOGLOBIN 27.7 pg (27-33); MEAN CORPUSCULAR HGB CONC 32.4 g/dl (32-36); MEAN PLATELET VOLUME 11.5 fl (7.4-10.4); PLATELET COUNT 255 K/uL (130-400); RED BLOOD COUNT 4.65 M/uL (3.80-5.40); RED CELL DISTRIBUTION WIDTH 13.4 % (11.5-14.5); WHITE BLOOD COUNT W/O DIFF 6.2 K/uL (4.2-12.2)
[2018-06-07 06:19] LABS: BLOOD UREA NITROGEN 14 mg/dL (6-20); CREATININE 0.7 mg/dL (0.5-0.9); EST GLOMERULAR FILTRATION RATE > 60 mL/min
[2018-06-07 06:21] LABS: GLUCOSE,RANDOM 89 mg/dL (74-109)
[2018-06-07 06:52] LABS: PLATELET ESTIMATE NORMAL (NORMAL)
== END 2018-06-07 06:44 | disposition home or self-care (01) ==
LOC: ER 05:44
DX: R51 Headache (principal); R11.2 Nausea with vomiting, unspecified; I10 Essential (primary) hypertension; Z87.891 Personal history of nicotine dependence
CPT/HCPCS: 80048; 85027; 96361; 96374; 99284; J1885; J7030

== ENCOUNTER 2018-06-11 06:09 | Emergency (ER) | payer BC ==
--- NOTE | 2018-06-11 06:29 | Emergency Department Record ---
Anxiety - General Chief Complaint: Anxiety Stated Complaint: DIZZINESS Time Seen by Provider: 06/11/18 06:24 Source: Patient Mode of Arrival: Ambulatory Limitations: No limitations - History of Present Illness Initial Comments: The patient is here due to waking up at 2am feeling mildly dizzy. She then took her BP and it was slightly low at 88/57 so the patient became very anxious and decided to come to the ER. Recently the patient's PCP did increase her Cardizem from 120 mg to 180 mg BID. The patient denied any CP, SOB, MARISA, or MARK but did feel anxious. The patient has a long hx of anxiety exactly like this. MD Complaint: Anxiety Onset/Timin -: Hour(s) Symptoms: Extremity numbness/tingling Place: Home Previous History of Same: Yes Severity: Mild Quality: Constant Provoking factors: Medication change Improves With: Nothing Worsens With: Nothing Associated symptoms: Denies other symptoms - Related Data Allergies/Adverse Reactions: Allergies Allergy/AdvReac Type Severity Reaction Status Date / Time venlafaxine [From Effexor] AdvReac elevated HR Verified 06/11/18 06:19 Travel Screening - Travel/Exposure Within Last 30 Days Have you traveled within the last 30 days?: No - Travel/Exposure Within Last Year Have you traveled outside the [place] in the last year?: No - Additonal Travel Details Have you been exposed to anyone with a communicable illness?: No - Travel Symptoms Symptom Screening: None Review of Systems Constitutional: Denies: Chills, Fever Eyes: Denies: Eye discharge ENT: Denies: Congestion Respiratory: Denies: Cough, Dyspnea Past Medical History - SOCIAL HISTORY Smoking Status: Former smoker - RESPIRATORY Hx Respiratory Disorders: Yes Hx Pneumonia: Yes - CARDIOVASCULAR Hx Cardio Disorders: Yes Hx Hypertension: Yes Hx Irregular Heartbeat: Yes (currently being evaluated) Comment:: inappropriate tachycardia - NEURO Hx Neuro Disorders: No Hx Headaches: Yes - GI Hx GI Disorders: No - Hx Genitourinary Disorders: No - ENDOCRINE Hx Endocrine Disorders: No - MUSCULOSKELETAL Hx Musculoskeletal Disorders: No - PSYCH Hx Psych Problems: Yes Hx Anxiety: Yes Hx Depression: Yes - HEMATOLOGY/ONCOLOGY Hx Hematology/Oncology Disorders: No Family Medical History Any Significant Family History?: Yes Family Hx Comment (NOT TO BE USED IN PLACE OF ITEMS BELOW): mom w/ MS Hx Cancer: Grandparents Hx Diabetes: Father Physical Exam - General General Appearance: Alert, Oriented x3, Cooperative, No acute distress - Head Head exam: Atraumatic, Normocephalic, Normal inspection - Eye Eye exam: Normal appearance, PERRL, EOMI - ENT Throat exam: Normal inspection. negative: Tonsillar erythema, Tonsillar exudate - Neck Neck exam: Normal inspection, Full ROM. negative: Tenderness - Respiratory Respiratory exam: Normal lung sounds bilaterally. negative: Respiratory distress - Cardiovascular Cardiovascular Exam: Regular rate, Normal rhythm, Normal heart sounds - GI/Abdominal GI/Abdominal exam: Soft, Normal bowel sounds. negative: Tenderness - Extremities Extremities exam: Normal inspection, Full ROM, Normal capillary refill. negative: Tenderness - Neurological Neurological exam: Alert, Normal gait. negative: Abnormal gait, Motor sensory deficit - Psychiatric Psychiatric exam: negative: Anxious Course Vital Signs 06/11/18 06/11/18 06:14 06:15 Temperature 98.3 F 98.3 F Pulse Rate [ 118 H Pulse Ox Probe] Respiratory 20 20 Rate Blood Pressure 143/92 [Left Arm] Pulse Ox 99 99 - Reevaluation(s) Reevaluation #1: The patient is feeling better after I explained to her that her BP at home was not really low. She now is feeling better and is ready for home. She is to have her home BP cuff checked for accuracy and is to monitor her BP at home. 06/11/18 06:32 Disposition Disposition: Discharge Clinical Impression: Anxiety attack Disposition: Home, Self-Care Condition: (2) Stable Instructions: Social Anxiety Disorder (ED) Additional Instructions: Please monitor your blood pressure daily and see your [employer] if it is running low. Return to the ER for any worsening issues or problems. Forms: Patient Portal Access Time of Disposition: 06:35 Quality - Quality Measures Quality Measures: N/A - Blood Pressure Screening View Details: Yes Does Patient Have Any of the Following: Active Dx of HTN Blood Pressure Classification: Pre-Hypertensive BP Reading Systolic Measurement: 133 Diastolic Measurement: 59 Screening for High Blood Pressure: Patient Exclusion, Hx of HTN [G9744]
== END 2018-06-11 06:41 | disposition home or self-care (01) ==
LOC: ER 06:09
DX: F41.0 Panic disorder [episodic paroxysmal anxiety] (principal); R42 Dizziness and giddiness; I10 Essential (primary) hypertension; Z87.891 Personal history of nicotine dependence
CPT/HCPCS: 99282

== ENCOUNTER 2018-10-31 09:58 | Emergency (ER) | payer BC ==
[2018-10-31] MEDS ORDERED: METHYLPREDNISOLONE PF 125MG/VIAL IM ONE (10:17)
--- NOTE | 2018-10-31 10:21 | Emergency Department Record ---
History of Present Illness - General Chief complaint: Itching Stated complaint: LT HAND ITCHES Time Seen by Provider: 10/31/18 10:05 Source: Patient Mode of Arrival: Ambulatory Limitations: No limitations - History of Present Illness Initial comments: The patient is here due to a 3 day hx of L palm itching. It has been getting progressively worsening over the last 3 days. [place] the time of the onset of the rash. She denies any new medicines or exposures. She also denies any rash, fever, pain, MARISA, SOB, or any trouble swallowing. The patient states she did not knowingly get exposed to any new plants or objects. MD complaint: Other Onset/Timin -: Days(s) Location: L hand Improves with: None Worsens with: None Context: None Associated symptoms: Denies other symptoms Treatments Prior to Arrival: None - Related Data Previous Rx's Medication Instructions Recorded Prednisone [Prednisone 20Mg] 40 mg PO DAILY #10 tab 10/31/18 Allergies Allergy/AdvReac Type Severity Reaction Status Date / Time venlafaxine [From Effexor] AdvReac elevated HR Verified 10/31/18 10:09 Travel Screening - Travel/Exposure Within Last 30 Days Have you traveled within the last 30 days?: No Review of Systems Constitutional: Denies: Chills, Fever Eyes: Denies: Eye discharge ENT: Denies: Congestion Respiratory: Denies: Cough, Dyspnea Past Medical History - SOCIAL HISTORY Smoking Status: Former smoker Alcohol Use: None Drug Use: None - RESPIRATORY Hx Respiratory Disorders: Yes Hx Pneumonia: Yes - CARDIOVASCULAR Hx Cardio Disorders: Yes Hx Hypertension: Yes Hx Irregular Heartbeat: Yes (currently being evaluated) Comment:: inappropriate tachycardia - NEURO Hx Neuro Disorders: No Hx Headaches: Yes - GI Hx GI Disorders: No - Hx Genitourinary Disorders: No - ENDOCRINE Hx Endocrine Disorders: No - MUSCULOSKELETAL Hx Musculoskeletal Disorders: No - PSYCH Hx Psych Problems: Yes Hx Anxiety: Yes Hx Depression: Yes - HEMATOLOGY/ONCOLOGY Hx Hematology/Oncology Disorders: No Family Medical History Any Significant Family History?: Yes Family Hx Comment (NOT TO BE USED IN PLACE OF ITEMS BELOW): mom w/ MS Hx Cancer: Grandparents Hx Diabetes: Father Physical Exam - General General Appearance: Alert, Oriented x3, Cooperative, No acute distress - Head Head exam: Atraumatic, Normocephalic - ENT Throat exam: Normal inspection. negative: Tonsillar erythema, Tonsillar exudate - Neck Neck exam: Normal inspection, Full ROM. negative: Tenderness - Respiratory Respiratory exam: Normal lung sounds bilaterally. negative: Respiratory distress, Rhonchi, Stridor, Wheezes - Cardiovascular Cardiovascular Exam: Regular rate, Normal rhythm, Normal heart sounds - GI/Abdominal GI/Abdominal exam: Soft, Normal bowel sounds. negative: Tenderness - Extremities Extremities exam: Normal inspection, Full ROM, Normal capillary refill. negative: Calf tenderness, Joint swelling, Pedal edema, Tenderness - Neurological Neurological exam: Alert. negative: Motor sensory deficit - Psychiatric Psychiatric exam: negative: Anxious - Skin Skin exam: Other (The L palm appears normal but is pruritic per the patient.). negative: Diaphoretic, Dry, Erythema, Rash, Urticaria Course Vital Signs 10/31/18 10:05 Temperature 98.3 F Pulse Rate 104 H Respiratory 20 Rate Blood Pressure 152/88 Pulse Ox 97 - Reevaluation(s) Reevaluation #1: I did explain to the patient that the palm appears normal but it does appear quite pruritic. She already takes Vistaril so we will place the patient on a steroid cream and oral pills. She is to see her PCP later this week for recheck. 10/31/18 10:21 Disposition Disposition: Discharge Clinical Impression: Itching with irritation Disposition: Home, Self-Care Condition: (2) Stable Instructions: Itchy Skin (ED) Additional Instructions: Please continue your home Vistaril and use an OTC steroid cream on the palm. Continue the Prednisone tomorrow and please see your family doctor in 2-3 days if not better. Return to the ER for any worsening symptoms. Prescriptions: Prednisone [Prednisone 20Mg] 40 mg PO DAILY #10 tab Forms: Patient Portal Access Time of Disposition: 10:24 Quality - Quality Measures Quality Measures: N/A - Blood Pressure Screening View Details: Yes Does Patient Have Any of the Following: No Blood Pressure Classification: Pre-Hypertensive BP Reading Systolic Measurement: 152 Diastolic Measurement: 88 Screening for High Blood Pressure: < Pre-Hypertensive BP, F/U Documented > [G8950] Pre-Hypertensive Follow-up Interventions: Referral to alternative/primary care provider.
== END 2018-10-31 10:55 | disposition home or self-care (01) ==
LOC: ER 09:58
DX: L29.9 Pruritus, unspecified (principal); Z87.891 Personal history of nicotine dependence
CPT/HCPCS: 99283; 99284; J2930